=== PATIENT | female | born 1955 | race Caucasian/White ===

== ENCOUNTER → 2018-06-04 | Outpatient (CLI) | payer OTHER ==
--- NOTE | 2018-06-04 17:16 | BD ---
EXAMINATION TYPE: Axial Bone Density DATE OF EXAM: 06/04/2018 COMPARISON: NONE CLINICAL HISTORY: Height: 66 IN Weight: 216 LBS FRAX RISK QUESTIONS: History of Fracture in Adulthood: LT ANKLE FX AGE 53, LT SHOULDER AGE 56 RISK FACTORS HISTORY OF: Family History of Osteoporosis: YES MOTHER Active: YES Diet low in dairy products/other sources of calcium: YES Postmenopausal woman: AGE 50 MEDICATIONS: Additional Medications: MULTI VITAMIN, LOSARTAN, HCTZ, ATENOLOL, CELECOXIB EXAM MEASUREMENTS: Bone mineral densitometry was performed using the [employer] System. Bone mineral density as measured about the Lumbar spine is: ----- L1-L4(G/cm2): 1.220 T Score Values are as follows: ----- L2: 0.1 ----- L3: 0.5 ----- L4: 0.8 ----- L1-L4: 0.3 Bone mineral density BASELINE Bone mineral density about the R hip (g/cm2): 0.950 Bone mineral density about the L hip (g/cm2): 0.875 T Score values are as follows: -----R Neck: -0.6 -----L Neck: -1.2 -----R Total: -0.4 -----L Total: -0.7 Bone mineral density BASELINE IMPRESSION: Normal (Values between +1 and -1 indicate normal bone mass). Consider repeating this study in 5 year s or sooner if there is some new clinical indication. NOTE: T-SCORE=SD OF THE YOUNG ADULT MEAN.
--- NOTE | 2018-06-05 08:13 | MM ---
Reason for exam: screening (asymptomatic). Last mammogram was performed 8 years and 1 month ago. History: Patient is postmenopausal. Benign excisional biopsy of the left breast. Physical Findings: A clinical breast exam by your physician is recommended on an annual basis and results should be correlated with mammographic findings. MG 3D Screening Mammo W/Cad Bilateral CC and MLO view(s) were taken. Prior study comparison: April 26, 2010, bilateral digital screening mammogram. April 19, 2009, bilateral digital screening mammogram. The breast tissue is heterogeneously dense. This may lower the sensitivity of mammography. Stable benign calcifications. There is no discrete abnormality. No significant changes when compared with prior studies. ASSESSMENT: Benign, BI-RAD 2 RECOMMENDATION: Routine screening mammogram of both breasts in 1 year.
== END | disposition home or self-care (01) ==
LOC: RADMAMWWP 08:00
PROVIDERS: ATTEND Family Medicine
DX: Z12.31 Encounter for screening mammogram for malignant neoplasm of breast (principal); Z78.0 Asymptomatic menopausal state
CPT/HCPCS: 77063; 77067; 77080

== ENCOUNTER 2019-03-05 21:13 | Inpatient (IN) | payer OTHER ==
--- NOTE | 2019-03-05 22:09 | ED ---
GI Bleed HPI - General Chief complaint: GI Bleed Stated complaint: Vomiting blood Time Seen by Provider: 03/05/19 21:44 Source: patient Mode of arrival: wheelchair Limitations: no limitations - History of Present Illness Initial comments: 's patient is a 63-year-old woman who presents to be evaluated for suspected gastrointestinal bleeding. The patient states that she noticed some coffee- ground emesis with the vomiting that she has been doing over the past day. Patient states that it is now been about 2 weeks since she has felt like her normal self. She states she had the onset of diarrhea, with about 2-3 soft to watery bowel movements per day going back nearly 2 weeks. She states she has not had any abdominal pain. Over the past day she developed vomiting. She states that since yesterday afternoon she has had 5-6 episodes of vomiting and that there has been some coffee-ground material. With the first episode there may have been a little bit of bright red blood. Patient is denying chest pain or dyspnea. She does feel a little bit lightheaded at times. Patient denies taking antibiotics prior to the onset of the diarrhea. MD complaint: coffee ground emesis Onset/Timin -: days(s) Quality: painless Improves with: none Worsens with: none - Related Data Home Medications Medication Instructions Recorded Confirmed Atenolol [Tenormin] 50 mg PO DAILY 03/05/19 03/05/19 Celecoxib [CeleBREX] 200 mg PO BID 03/05/19 03/05/19 Diphenoxylate HCl/Atropine 2 tab PO QID PRN 03/05/19 03/05/19 [Lomotil 2.5-0.025 mg Tablet] Losartan/Hydrochlorothiazide 1 tab PO DAILY 03/05/19 03/05/19 [Losartan-Hctz 100-25 mg Tab] Multivitamins, Thera [Multivitamin 1 tab PO DAILY 03/05/19 03/05/19 (formulary)] Ranitidine HCl [Zantac] 150 mg PO BID 03/05/19 03/05/19 Allergies Allergy/AdvReac Type Severity Reaction Status Date / Time No Known Allergies Allergy Verified 03/05/19 22:04 Review of Systems ROS Statement: Those systems with pertinent positive or pertinent negative responses have been documented in the HPI. ROS Other: All systems not noted in ROS Statement are negative. Constitutional: Reports: weakness. Denies: fever, chills Respiratory: Denies: cough, dyspnea Cardiovascular: Denies: chest pain, palpitations, orthopnea, edema, syncope Gastrointestinal: Reports: nausea, vomiting, diarrhea, hematemesis. Denies: abdominal pain, melena, hematochezia Genitourinary: Denies: dysuria, hematuria Musculoskeletal: Denies: back pain Skin: Denies: rash Neurological: Denies: headache, weakness, numbness Hematological/Lymphatic: Denies: easy bleeding Past Medical History Past Medical History: Hypertension History of Any Multi-Drug Resistant Organisms: None Reported Past Surgical History: Orthopedic Surgery Additional Past Surgical History / Comment(s): ankle sx Past Psychological History: No Psychological Hx Reported Smoking Status: Never smoker Past Alcohol Use History: None Reported Past Drug Use History: None Reported General Exam Limitations: no limitations General appearance: alert, in no apparent distress Head exam: Present: atraumatic, normocephalic Eye exam: Present: normal appearance. Absent: scleral icterus, conjunctival injection ENT exam: Present: mucous membranes moist, other (Mucosal pallor) Respiratory exam: Present: normal lung sounds bilaterally. Absent: respiratory distress, wheezes, rales, rhonchi, stridor Cardiovascular Exam: Present: regular rate, normal rhythm, normal heart sounds. Absent: systolic murmur, diastolic murmur, rubs, gallop GI/Abdominal exam: Present: soft, normal bowel sounds. Absent: distended, tenderness, guarding, rebound, rigid, mass, pulsatile mass, hernia Extremities exam: Present: normal inspection, normal capillary refill, pedal edema (There is mild left lower extremity edema that the patient states it is chronic since she had broken her leg.). Absent: calf tenderness Back exam: Present: normal inspection. Absent: CVA tenderness (R), CVA tendern ess (L) Neurological exam: Present: alert Skin exam: Present: warm, dry, intact, normal color. Absent: rash Course Vital Signs 03/05/19 03/05/19 03/05/19 21:35 22:12 22:20 Temperature 97.3 F L Pulse Rate 84 68 Respiratory 20 7 L Rate Blood Pressure 101/62 126/71 O2 Sat by Pulse 95 94 L 94 L Oximetry 03/05/19 03/05/19 03/05/19 22:40 23:10 23:40 Temperature Pulse Rate 71 70 72 Respiratory 11 L 9 L 11 L Rate Blood Pressure 133/74 120/73 114/71 O2 Sat by Pulse 94 L 94 L 96 Oximetry 03/06/19 03/06/19 03/06/19 00:10 00:30 00:40 Temperature Pulse Rate 71 70 Respiratory 14 12 Rate Blood Pressure 106/68 106/68 122/69 O2 Sat by Pulse 93 L Oximetry 03/06/19 03/06/19 03/06/19 00:50 01:00 02:50 Temperature Pulse Rate 75 Respiratory 12 Rate Blood Pressure 122/69 122/69 115/75 O2 Sat by Pulse 93 L Oximetry - Reevaluation(s) Reevaluation #1: 03/06/19 05:36 Case is discussed with cardiology given the patient's positive troponins. The p atient is currently not having chest symptoms. Given the GI bleeding, will hold heparin. Cardiology recommendations are incorporated. They will see the patient early. Medical Decision Making - Lab Data Result diagrams: 03/05/19 21:43 03/05/19 21:43 Lab Results 03/05/19 03/05/19 03/05/19 Range/Units 21:43 21:43 21:43 WBC 17.0 H (3.8-10.6) k/uL RBC 3.68 L (3.80-5.40) m/uL Hgb 11.0 L (11.4-16.0) gm/dL Hct 33.6 L (34.0-46.0) % MCV 91.2 (80.0-100.0) fL MCH 29.8 (25.0-35.0) pg MCHC 32.7 (31.0-37.0) g/dL RDW 13.0 (11.5-15.5) % Plt Count 280 (150-450) k/uL Neutrophils % 79 % Lymphocytes % 16 % Monocytes % 3 % Eosinophils % 0 % Basophils % 0 % Neutrophils # 13.5 H (1.3-7.7) k/uL Lymphocytes # 2.7 (1.0-4.8) k/uL Monocytes # 0.6 (0-1.0) k/uL Eosinophils # 0.0 (0-0.7) k/uL Basophils # 0.1 (0-0.2) k/uL PT (9.0-12.0) sec INR (<1.2) APTT (22.0-30.0) sec Sodium 138 (137-145) mmol/L Potassium 4.3 (3.5-5.1) mmol/L Chloride 101 (98-107) mmol/L Carbon Dioxide 25 (22-30) mmol/L Anion Gap 12 mmol/L BUN 49 H (7-17) mg/dL Creatinine 1.36 H (0.52-1.04) mg/dL Est GFR (CKD-EPI)AfAm 48 (>60 ml/min/1.73 sqM) Est GFR (CKD-EPI)NonAf 42 (>60 ml/min/1.73 sqM) Glucose 164 H (74-99) mg/dL Lactic Ac Sepsis Rflx Plasma Lactic Acid Khalif (0.7-2.0) mmol/L Calcium 9.8 (8.4-10.2) mg/dL Total Bilirubin 0.6 (0.2-1.3) mg/dL AST 21 (14-36) U/L ALT 19 (9-52) U/L Alkaline Phosphatase 84 (38-126) U/L Troponin I 0.195 H* (0.000-0.034) ng/mL Total Protein 7.2 (6.3-8.2) g/dL Albumin 4.4 (3.5-5.0) g/dL Amylase 62 (30-110) U/L Lipase 39 (23-300) U/L Stool Occult Blood (Negative) Blood Type Blood Type Confirm Blood Type Recheck Antibody Screen Spec Expiration Date 03/05/19 03/05/19 03/05/19 Range/Units 21:43 22:52 23:24 WBC (3.8-10.6) k/uL RBC (3.80-5.40) m/uL Hgb (11.4-16.0) gm/dL Hct (34.0-46.0) % MCV (80.0-100.0) fL MCH (25.0-35.0) pg MCHC (31.0-37.0) g/dL RDW (11.5-15.5) % Plt Count (150-450) k/uL Neutrophils % % Lymphocytes % % Monocytes % % Eosinophils % % Basophils % % Neutrophils # (1.3-7.7) k/uL Lymphocytes # (1.0-4.8) k/uL Monocytes # (0-1.0) k/uL Eosinophils # (0-0.7) k/uL Basophils # (0-0.2) k/uL PT (9.0-12.0) sec INR (<1.2) APTT (22.0-30.0) sec Sodium (137-145) mmol/L Potassium (3.5-5.1) mmol/L Chloride (98-107) mmol/L Carbon Dioxide (22-30) mmol/L Anion Gap mmol/L BUN (7-17) mg/dL Creatinine (0.52-1.04) mg/dL Est GFR (CKD-EPI)AfAm (>60 ml/min/1.73 sqM) Est GFR (CKD-EPI)NonAf (>60 ml/min/1.73 sqM) Glucose (74-99) mg/dL Lactic Ac Sepsis Rflx Y Plasma Lactic Acid Khalif 2.6 H* (0.7-2.0) mmol/L Calcium (8.4-10.2) mg/dL Total Bilirubin (0.2-1.3) mg/dL AST (14-36) U/L ALT (9-52) U/L Alkaline Phosphatase (38-126) U/L Troponin I (0.000-0.034) ng/mL Total Protein (6.3-8.2) g/dL Albumin (3.5-5.0) g/dL Amylase (30-110) U/L Lipase (23-300) U/L Stool Occult Blood (Negative) Blood Type O Positive Blood Type Confirm Blood Type Recheck CABO Indicated Antibody Screen NEGATIVE Spec Expiration Date 03/08/2019234203/05/19 03/05/19 03/06/19 Range/Units 23:40 23:44 02:12 WBC (3.8-10.6) k/uL RBC (3.80-5.40) m/uL Hgb (11.4-16.0) gm/dL Hct (34.0-46.0) % MCV (80.0-100.0) fL MCH (25.0-35.0) pg MCHC (31.0-37.0) g/dL RDW (11.5-15.5) % Plt Count (150-450) k/uL Neutrophils % % Lymphocytes % % Monocytes % % Eosinophils % % Basophils % % Neutrophils # (1.3-7.7) k/uL Lymphocytes # (1.0-4.8) k/uL Monocytes # (0-1.0) k/uL Eosinophils # (0-0.7) k/uL Basophils # (0-0.2) k/uL PT 11.5 (9.0-12.0) sec INR 1.1 (<1.2) APTT 20.3 L (22.0-30.0) sec Sodium (137-145) mmol/L Potassium (3.5-5.1) mmol/L Chloride (98-107) mmol/L Carbon Dioxide (22-30) mmol/L Anion Gap mmol/L BUN (7-17) mg/dL Creatinine (0.52-1.04) mg/dL Est GFR (CKD-EPI)AfAm (>60 ml/min/1.73 sqM) Est GFR (CKD-EPI)NonAf (>60 ml/min/1.73 sqM) Glucose (74-99) mg/dL Lactic Ac Sepsis Rflx Plasma Lactic Acid Khalif (0.7-2.0) mmol/L Calcium (8.4-10.2) mg/dL Total Bilirubin (0.2-1.3) mg/dL AST (14-36) U/L ALT (9-52) U/L Alkaline Phosphatase (38-126) U/L Troponin I (0.000-0.034) ng/mL Total Protein (6.3-8.2) g/dL Albumin (3.5-5.0) g/dL Amylase (30-110) U/L Lipase (23-300) U/L Stool Occult Blood Positive H (Negative) Blood Type Blood Type Confirm O Positive Blood Type Recheck Antibody Screen Spec Expiration Date - EKG Data -: EKG Interpreted by Me EKG shows normal: sinus rhythm, axis (Normal), intervals (Normal), QRS complexes (Normal) Rate: normal (Rate 73 bpm) Interpretation: nonspecific ST-T wave changes Disposition Clinical Impression: Gastrointestinal hemorrhage, Elevated troponin I level, Lactic acidosis Disposition: ADMITTED IP TO THIS HOSP Condition: Good Is patient prescribed a controlled substance at d/c from ED?: No
[2019-03-05 23:05] LABS: Albumin 4.4 g/dL (3.5-5.0); Calcium 9.8 mg/dL (8.4-10.2); Potassium 4.3 mmol/L (3.5-5.1); Total Bilirubin 0.6 mg/dL (0.2-1.3); Total Protein 7.2 g/dL (6.3-8.2)
[2019-03-05] MEDS ORDERED: SODIUM CHLORIDE 0.9% 1,000 ML IV ONE (23:24)
[2019-03-05 23:46] LABS: Basophils # (A) 0.1 k/uL (0-0.2); Basophils % (A) 0 %; Eosinophils % (A) 0 %; HCT 33.6 % (34.0-46.0); Lymphocytes # (A) 2.7 k/uL (1.0-4.8); Lymphocytes % (A) 16 %; MCH 29.8 pg (25.0-35.0); MCHC 32.7 g/dL (31.0-37.0); MCV 91.2 fL (80.0-100.0); Mean Platelet Volume 7.5; Monocytes # (A) 0.6 k/uL (0-1.0); Monocytes % (A) 3 %; Neutrophils # (A) 13.5 k/uL (1.3-7.7); Neutrophils % (A) 79 %; Platelet Count 280 k/uL (150-450); RBC 3.68 m/uL (3.80-5.40)
[2019-03-06 00:40] LABS: INR 1.1 (<1.2); Prothrombin Time 11.5 sec (9.0-12.0)
[2019-03-06 00:43] LABS: Partial Thromboplastin Time 20.3 sec (22.0-30.0)
[2019-03-06] MEDS ORDERED: ONDANSETRON 4 MG/2 ML VIAL IVP STA (00:53)
[2019-03-06] MEDS ORDERED: SODIUM CHLORIDE 0.9% 1,000 ML IV ONE ×2 (00:56→05:20)
[2019-03-06] MEDS ORDERED: NALOXONE 0.4 MG/ML 1 ML VIAL IV PRN (02:13)
[2019-03-06] MEDS ORDERED: PANTOPRAZOLE 40 MG/10 ML VIAL IVP STA (02:18)
[2019-03-06] MEDS ORDERED: IOPAMIDOL-300 CONTRAST 30 ML VIAL (ORAL USE) PO PRN (02:19)
[2019-03-06] MEDS ORDERED: LEVOFLOXACIN 750 MG TAB PO STA (02:20)
[2019-03-06 03:54] LABS: Appearance,Urine Clear (Clear); Bilirubin,Urine Negative (Negative); Blood,Urine Negative (Negative); Color,Urine Light Yellow; Glucose,Urine (UA) Negative (Negative); Ketones,Urine Negative (Negative); Leukocyte Esterase,Urine Negative (Negative); Nitrite,Urine Negative (Negative); Protein,Urine Negative (Negative); Specific Gravity,Urine 1.023 (1.001-1.035); Urobilinogen,Urine <2.0 mg/dL (<2.0)
[2019-03-06] MEDS: SODIUM CHLORIDE 0.9% 1,000 ML IV SCH ×3 (05:15→22:00)
--- NOTE | 2019-03-06 05:15 | CT ---
EXAM: CT Abdomen and Pelvis With Intravenous Contrast CLINICAL HISTORY: ITS.REASON CT Reason: GI bleeding TECHNIQUE: Axial computed tomography images of the abdomen and pelvis with intravenous contrast. CTDI is 21 mGy and DLP is 1137 mGy-cm. This CT exam was performed using one or more of the following dose reduction techniques: automated exposure control, adjustment of the mA and/or kV according to patient size, and/or use of iterative reconstruction technique. COMPARISON: No relevant prior studies available. FINDINGS: Lung bases: No mass. No consolidation. ABDOMEN: Liver: Unremarkable. Gallbladder and bile ducts: Severely distended gallbladder with a 2 cm stone at the neck. No biliary dilatation. Pancreas: Unremarkable. Spleen: Unremarkable. Adrenals: Unremarkable. Kidneys and ureters: No hydronephrosis. Stomach and bowel: No bowel obstruction. No bowel wall thickening. PELVIS: Appendix: No evidence of appendicitis. Bladder: Unremarkable. Reproductive: Unremarkable. ABDOMEN and PELVIS: Intraperitoneal space: Unremarkable. Bones/joints: No acute fractures. Soft tissues: Unremarkable. Vasculature: No abdominal aortic aneurysm. Lymph nodes: No enlarged lymph nodes. IMPRESSION: 1. Severely distended gallbladder with a 2 cm stone at the neck. If there is pain in the right upper quadrant, recommend ultrasound. 2. No acute bowel pathology.
--- NOTE | 2019-03-06 08:13 | P.HPIM ---
History of Present Illness This is a pleasant 63 years old female with past medical history of high blood pressure. Presents with few weeks of loose bowel movement, about 2-3 times a day, however 2-3 days ago patient started to have an blood in stool associated with vomiting of blood about 4-5 times per day, moderate amount. Patient looks pale and she had some episodes of dizziness and passing out. Patient also has been complaining of from the neck pain and left shoulder pain and she's been taken regular aspirin 325 mg, Exidine twice daily. She has history of left shoulder fracture about 4-5 years ago but no recent trauma. Patient denies chest pain or dyspnea. No coughing. No abdominal pain. Patient is hemodynamically stable with a blood pressure 122/69, and heart rate 70. She has white cell count of 17 K. Hemoglobin is 11. Platelets 218. INR is 1.1. Creatinine 1.36, with unknown baseline. Occult blood is positive in stool. Lactic acid is 2.6, down to 2.2. Troponin 0.19 and 0.28. Urine is not suspicious for infection EKG showing normal sinus rhythm at 73 BPM, no significant ST-T changes. Patient had CT of the abdomen and pelvis severely distended gallbladder with 2 cm stone in the neck In the emergency room patient received IV fluids, Protonix and Levaquin Review of Systems CONSTITUTIONAL: No fever, no malaise, no fatigue. HEENT: No recent visual problems or hearing problems. Denied any sore throat. CARDIOVASCULAR: No orthopnea, PND, no palpitations, no syncope. PULMONARY: No shortness of breath, no cough, no hemoptysis. GASTROINTESTINAL: No diarrhea, no nausea, no vomiting, no abdominal pain. Normoactive bowel sounds. NEUROLOGICAL: No headaches, no weakness, no numbness. HEMATOLOGICAL: Denies any bleeding or petechiae. GENITOURINARY: Denies any burning micturition, frequency, or urgency. MUSCULOSKELETAL/RHEUMATOLOGICAL: Denies any joint pain, swelling, or any muscle pain. ENDOCRINE: Denies any polyuria or polydipsia. Past Medical History Past Medical History: Hypertension History of Any Multi-Drug Resistant Organisms: None Reported Past Surgical History: Orthopedic Surgery Additional Past Surgical History / Comment(s): ankle sx Past Psychological History: No Psychological Hx Reported Smoking Status: Never smoker Past Alcohol Use History: None Reported Past Drug Use History: None Reported Medications and Allergies Home Medications Medication Instructions Recorded Confirmed Type Atenolol [Tenormin] 50 mg PO DAILY 03/05/19 03/05/19 History Celecoxib [CeleBREX] 200 mg PO BID 03/05/19 03/05/19 History Diphenoxylate HCl/Atropine 2 tab PO QID PRN 03/05/19 03/05/19 History [Lomotil 2.5-0.025 mg Tablet] Losartan/Hydrochlorothiazide 1 tab PO DAILY 03/05/19 03/05/19 History [Losartan-Hctz 100-25 mg Tab] Multivitamins, Thera [Multivitamin 1 tab PO DAILY 03/05/19 03/05/19 History (formulary)] Ranitidine HCl [Zantac] 150 mg PO BID 03/05/19 03/05/19 History Allergies Allergy/AdvReac Type Severity Reaction Status Date / Time No Known Allergies Allergy Verified 03/05/19 22:04 Physical Exam Vitals: Vital Signs Temp Pulse Resp BP Pulse Ox 03/06/19 02:50 75 12 115/75 93 L 03/06/19 01:00 122/69 03/06/19 00:50 122/69 03/06/19 00:40 70 12 122/69 93 L 03/06/19 00:30 71 14 106/68 03/06/19 00:10 106/68 03/05/19 23:40 72 11 L 114/71 96 03/05/19 23:10 70 9 L 120/73 94 L 03/05/19 22:40 71 11 L 133/74 94 L 03/05/19 22:20 68 7 L 126/71 94 L 03/05/19 22:12 94 L 03/05/19 21:35 97.3 F L 84 20 101/62 95 Intake and Output 03/05/19 03/05/19 03/06/19 14:59 22:59 06:59 Other: Weight 104.326 kg GENERAL: The patient is alert and oriented x3, not in any acute distress. Well developed, well nourished. HEENT: Pupils are round and equally reacting to light. EOMI. No scleral icterus. No conjunctival pallor. Normocephalic, atraumatic. No pharyngeal erythema. No thyromegaly. CARDIOVASCULAR: S1 and S2 present. No murmurs, rubs, or gallops. PULMONARY: Chest is clear to auscultation, no wheezing or crackles. ABDOMEN: Soft, nontender, nondistended, normoactive bowel sounds. No palpable organomegaly. MUSCULOSKELETAL: No joint swelling or deformity. EXTREMITIES: No cyanosis, clubbing, or pedal edema. NEUROLOGICAL: Gross neurological examination did not reveal any focal deficits. SKIN: No rashes. Results CBC & Chem 7: 03/05/19 21:43 03/05/19 21:43 Labs: Abnormal Lab Results - Last 24 Hours (Table) 03/05/19 03/05/19 03/05/19 Range/Units 21:43 21:43 21:43 WBC 17.0 H (3.8-10.6) k/uL RBC 3.68 L (3.80-5.40) m/uL Hgb 11.0 L (11.4-16.0) gm/dL Hct 33.6 L (34.0-46.0) % Neutrophils # 13.5 H (1.3-7.7) k/uL APTT (22.0-30.0) sec BUN 49 H (7-17) mg/dL Creatinine 1.36 H (0.52-1.04) mg/dL Glucose 164 H (74-99) mg/dL Plasma Lactic Acid Khalif (0.7-2.0) mmol/L Troponin I 0.195 H* (0.000-0.034) ng/mL Stool Occult Blood (Negative) 03/05/19 03/05/19 03/06/19 Range/Units 22:52 23:44 02:12 WBC (3.8-10.6) k/uL RBC (3.80-5.40) m/uL Hgb (11.4-16.0) gm/dL Hct (34.0-46.0) % Neutrophils # (1.3-7.7) k/uL APTT 20.3 L (22.0-30.0) sec BUN (7-17) mg/dL Creatinine (0.52-1.04) mg/dL Glucose (74-99) mg/dL Plasma Lactic Acid Khalif 2.6 H* (0.7-2.0) mmol/L Troponin I (0.000-0.034) ng/mL Stool Occult Blood Positive H (Negative) 03/06/19 03/06/19 Range/Units 02:59 02:59 WBC (3.8-10.6) k/uL RBC (3.80-5.40) m/uL Hgb (11.4-16.0) gm/dL Hct (34.0-46.0) % Neutrophils # (1.3-7.7) k/uL APTT (22.0-30.0) sec BUN (7-17) mg/dL Creatinine (0.52-1.04) mg/dL Glucose (74-99) mg/dL Plasma Lactic Acid Khalif 2.2 H* (0.7-2.0) mmol/L Troponin I 0.282 H* (0.000-0.034) ng/mL Stool Occult Blood (Negative) Assessment and Plan Assessment: Acute GI bleed Acute blood loss anemia Distended gallbladder Acute kidney injury Elevated troponin High lactic acid Essential hypertension Plan: This is a pleasant 63 years old female who presents with GI bleed and elevated troponin. Continue with Protonix. Call GI consult. In view of high troponins we will call cardiology evaluation however no aspirin was started because of the GI bleed. Continue with parenteral hydration and monitor creatinine closely. Follow-up lactic acid level. Also will do regular ultrasound for the gallbladder disease. Check chest x-ray. Continue with antibiotic and send blood culture . Labs and medication were reviewed.. Continue same treatment. Continue with symptomatic treatment. Resume home medication. Monitor lytes and vitals. DVT and GI prophylaxis. Further recommendations of the clinical course of the patient DVT prophylaxis: No heparin in view of GI bleed GI Prophylaxis: Protonix Prognosis is guarded
[2019-03-06 08:52] LABS: Basophils % (A) 0 %; Eosinophils % (A) 0 %; Lymphocytes # (A) 1.7 k/uL (1.0-4.8); Lymphocytes % (A) 18 %; MCH 31.2 pg (25.0-35.0); MCHC 33.9 g/dL (31.0-37.0); Mean Platelet Volume 7.6; Monocytes # (A) 0.5 k/uL (0-1.0); Monocytes % (A) 5 %; Neutrophils # (A) 7.3 k/uL (1.3-7.7); Neutrophils % (A) 75 %; Platelet Count 168 k/uL (150-450); RBC 2.13 m/uL (3.80-5.40); RDW 13.8 % (11.5-15.5); WBC 9.7 k/uL (3.8-10.6)
--- NOTE | 2019-03-06 08:55 | US ---
EXAMINATION TYPE: US liver DATE OF EXAM: 03/06/2019 COMPARISON: CT CLINICAL HISTORY: Distended gallbladder with stones. EXAM MEASUREMENTS: Liver Length: 15.2 cm Gallbladder Wall: 0.2 cm CBD: 0.5 cm Right Kidney: 11.3 x 4.2 x 4.5 cm Pancreas: visualized portions wnl Liver: wnl Gallbladder: large stone measures 2.4 cm, located near neck, does not appear lodged in neck, but did not really move during exam with postition change Evidence for sonographic Keller's sign: No CBD: wnl Right Kidney: No hydronephrosis or masses seen IMPRESSION: 1. Semiimpacted gallstone in the region of the gallbladder neck. No wall thickening or pericholecysti c fluid at this time.
[2019-03-06] MEDS ORDERED: LOSARTAN-HCTZ 50-12.5 MG 1 EACH TAB PO SCH (09:00)
[2019-03-06] MEDS ORDERED: PANTOPRAZOLE 40 MG/10 ML VIAL IVP SCH (09:00)
[2019-03-06 09:03] LABS: HCT 19.6 % (34.0-46.0); HGB 6.6 gm/dL (11.4-16.0)
[2019-03-06] MEDS: ATENOLOL 50 MG TAB PO SCH (09:24)
[2019-03-06] MEDS: MULTIVITAMINS, THERA 1 EACH TAB PO SCH (09:24)
[2019-03-06 09:42] LABS: Albumin 2.5 g/dL (3.5-5.0); Calcium 7.4 mg/dL (8.4-10.2); Potassium 4.3 mmol/L (3.5-5.1); Total Bilirubin 0.2 mg/dL (0.2-1.3); Total Protein 4.6 g/dL (6.3-8.2)
[2019-03-06 14:52] LABS: Glucose,Whole Blood 130 mg/dL (75-99)
[2019-03-06 14:59] LABS: HCT 27.3 % (34.0-46.0); MCH 30.7 pg (25.0-35.0); MCHC 33.4 g/dL (31.0-37.0); MCV 92.1 fL (80.0-100.0); Mean Platelet Volume 7.7; Platelet Count 184 k/uL (150-450); RBC 2.96 m/uL (3.80-5.40); RDW 14.1 % (11.5-15.5); WBC 16.6 k/uL (3.8-10.6)
[2019-03-06 15:02] LABS: HGB 9.1 gm/dL (11.4-16.0)
--- NOTE | 2019-03-06 16:39 | P.CNPUL ---
History of Present Illness Consult date: 03/06/19 Reason for consult: other (GI bleeding, anemia, blood loss, presently in the ICU.) Chief complaint: Black stools and vomiting blood History of present illness: This is a 63-year-old female with known history of hypertension, no previous history of gastric ulcer disease, no previous history of diverticular disease, no previous history of any form of GI bleeding. Patient had a colonoscopy in the last year by Dr. Martinez, and she was told her colonoscopy was normal. Patient normally takes aspirin 325 mg 2-3 times per day for left shoulder pain. Patient presented mostly with few weeks history of loose bowel movements, about 2-3 times per day. However 2 days ago patient has been noticing melanotic stools and at one point she had an episode of coffee-ground emesis. Patient was concerned that she may be losing blood, hence she presented to the ER. She had no abdominal pain, her initial hemoglobin on presentation was 11.0, went down to 6.6, and after a unit of blood was transfused, her hemoglobin came back up to 9.1. Her last episode of melanotic stool was about a few hours ago. Presently the patient is asymptomatic, hemodynamically stable, in no distress, and she was admitted to the ICU because of her GI bleeding. She is yet to be seen by gastroenterology on consultation. Patient is extremely comfortable, and in no distress. She did receive so far 1 unit of packed RBCs. Patient denies being on any anticoagulation therapy except for Excedrin for left shoulder pain, and again she never had any history of GI bleeding, and no history of alcohol abuse. She does not drink any alcohol. Review of Systems CONSTITUTIONAL: No weight loss no fever no chills, no fatigue. HEENT: No diplopia, no blurred vision, no earache, no sore throat. CARDIOVASCULAR: No chest pain, no palpitations, no orthopnea, no PND, no syncope PULMONARY: No shortness of breath, no cough, no hemoptysis. GASTROINTESTINAL: As noted in HPI. NEUROLOGICAL: No headaches no blurred vision no dizziness. HEMATOLOGICAL: No previous history of bleeding clotting or bruising.. GENITOURINARY: No dysuria and no frequency no urgency no hematuria MUSCULOSKELETAL/RHEUMATOLOGICAL: Patient has chronic left shoulder pain otherwise unremarkable.. ENDOCRINE: Denies any symptoms to suggest diabetes or hypothyroidism or hyperthyroidism Past Medical History Past Medical History: Hypertension History of Any Multi-Drug Resistant Organisms: None Reported Past Surgical History: Orthopedic Surgery Additional Past Surgical History / Comment(s): ankle sx Past Psychological History: No Psychological Hx Reported Smoking Status: Never smoker Past Alcohol Use History: None Reported Past Drug Use History: None Reported Medications and Allergies Home Medications Medication Instructions Recorded Confirmed Type Atenolol [Tenormin] 50 mg PO DAILY 03/05/19 03/05/19 History Celecoxib [CeleBREX] 200 mg PO BID 03/05/19 03/05/19 History Diphenoxylate HCl/Atropine 2 tab PO QID PRN 03/05/19 03/05/19 History [Lomotil 2.5-0.025 mg Tablet] Losartan/Hydrochlorothiazide 1 tab PO DAILY 03/05/19 03/05/19 History [Losartan-Hctz 100-25 mg Tab] Multivitamins, Thera [Multivitamin 1 tab PO DAILY 03/05/19 03/05/19 History (formulary)] Ranitidine HCl [Zantac] 150 mg PO BID 03/05/19 03/05/19 History Allergies Allergy/AdvReac Type Severity Reaction Status Date / Time No Known Allergies Allergy Verified 03/05/19 22:04 Physical Exam Vitals: Vital Signs Temp Pulse Pulse Resp BP BP Pulse Ox 03/06/19 16:20 84 19 134/70 03/06/19 16:10 81 16 134/70 03/06/19 16:00 97.7 F 84 16 134/70 03/06/19 15:50 85 20 134/70 03/06/19 15:40 75 12 134/70 03/06/19 15:30 75 14 134/70 03/06/19 15:27 100 03/06/19 15:20 85 21 134/70 03/06/19 15:10 82 22 134/70 03/06/19 15:00 85 22 134/70 03/06/19 14:56 97.7 F 81 16 134/70 03/06/19 14:53 82 18 134/70 03/06/19 14:30 98.1 F 98 28 H 122/53 97 03/06/19 14:20 97 25 H 122/53 03/06/19 14:10 93 14 122/53 98 03/06/19 14:00 98.1 F 89 19 123/73 98 03/06/19 13:50 88 14 123/73 99 03/06/19 13:40 89 21 123/73 99 03/06/19 13:30 78 15 125/90 100 03/06/19 13:25 98.2 F 82 16 123/73 99 03/06/19 13:20 89 14 125/90 100 03/06/19 13:10 93 26 H 125/90 100 03/06/19 13:00 81 13 118/74 100 03/06/19 12:50 87 21 118/74 100 03/06/19 12:40 88 22 118/74 100 03/06/19 12:30 86 15 126/75 100 03/06/19 12:20 81 12 126/75 100 03/06/19 12:10 94 24 126/75 99 03/06/19 12:00 98.3 F 87 25 H 129/67 100 03/06/19 11:50 86 22 129/67 100 03/06/19 11:40 81 20 129/67 100 03/06/19 11:30 82 21 125/63 100 03/06/19 11:20 85 15 114/71 03/06/19 11:10 85 15 114/71 03/06/19 11:00 86 22 114/65 99 03/06/19 10:50 81 19 125/75 99 03/06/19 10:46 98.2 F 84 16 114/65 100 03/06/19 10:40 80 21 125/75 100 03/06/19 10:36 98.2 F 84 18 125/75 97 03/06/19 10:30 76 15 118/65 98 03/06/19 10:20 81 20 118/65 99 03/06/19 10:16 98.4 F 86 16 118/65 03/06/19 10:10 84 37 H 106/82 99 03/06/19 10:06 97.9 F 87 20 106/82 97 03/06/19 10:00 80 11 L 117/98 90 L 03/06/19 09:50 86 19 117/98 91 L 03/06/19 09:40 96/82 95 03/06/19 09:30 122/65 95 03/06/19 09:20 122/65 98 03/06/19 09:10 122/65 98 03/06/19 09:00 81 19 126/90 98 03/06/19 08:50 126/90 100 03/06/19 08:40 80 126/90 97 03/06/19 08:30 94 18 119/64 100 03/06/19 08:20 80 0 L 119/64 100 03/06/19 08:10 81 11 L 119/64 100 03/06/19 08:00 80 10 L 119/64 97 03/06/19 07:50 98.6 F 84 23 119/64 100 03/06/19 07:40 82 23 111/64 03/06/19 07:30 90 11 L 102/71 95 03/06/19 02:50 75 12 115/75 93 L 03/06/19 01:00 122/69 03/06/19 00:50 122/69 03/06/19 00:40 70 12 122/69 93 L 03/06/19 00:30 71 14 106/68 03/06/19 00:10 106/68 03/05/19 23:40 72 11 L 114/71 96 03/05/19 23:10 70 9 L 120/73 94 L 03/05/19 22:40 71 11 L 133/74 94 L 03/05/19 22:20 68 7 L 126/71 94 L 03/05/19 22:12 94 L 03/05/19 21:35 97.3 F L 84 20 101/62 95 Intake and Output 03/06/19 03/06/19 03/06/19 06:59 14:59 22:59 Intake Total 310 200 Balance 310 200 Intake: IV 200 Sodium Chloride 0.9% 1, 200 000 ml @ 100 mls/hr IV . Q10H [facility] Rx#:[id number] Blood Product 310 Rc As-1 Unit 310 [id number] Other: Voiding Method Bedside Commode Physical Exam: Revealed a 63-year-old female in no form of distress, extremely pleasant. Head: Atraumatic, normocephalic. HEENT:[Neck is supple.] [No neck masses.] [No thyromegaly.] [No JVD.] PERRLA, EOMI, no icterus. Mild conjunctival pallor noted. Chest: [Clear throughout, no crackles, no rhonchi, no wheezes.] Cardiac Exam: [Normal S1 and S2, no S3 gallop, no murmur.] Abdomen: [Soft, nontender, no megaly, no rebound, no guarding, normal bowel sounds.] Extremities: [No clubbing, no edema, no cyanosis.] Neurological Exam: [No focal neurologic deficit.] Alert oriented 3. Skin: No rashes Psychiatric: Normal mood affect and mental status examination. Lymphatics: No lymphadenopathy. Results - Laboratory Findings CBC and BMP: 03/06/19 14:47 03/06/19 08:10 PT/INR, D-dimer PT 11.5 sec (9.0-12.0) 03/05/19 23:44 INR 1.1 (<1.2) 03/05/19 23:44 Abnormal lab findings: Abnormal Labs 03/05/19 03/05/19 03/05/19 21:43 21:43 21:43 WBC 17.0 H RBC 3.68 L Hgb 11.0 L Hct 33.6 L Neutrophils # 13.5 H APTT Chloride Carbon Dioxide BUN 49 H Creatinine 1.36 H Glucose 164 H POC Glucose (mg/dL) Plasma Lactic Acid Khalif Calcium Troponin I 0.195 H* Total Protein Albumin Stool Occult Blood Crossmatch 03/05/19 03/05/19 03/05/19 21:43 22:52 23:44 WBC RBC Hgb Hct Neutrophils # APTT 20.3 L Chloride Carbon Dioxide BUN Creatinine Glucose POC Glucose (mg/dL) Plasma Lactic Acid Khalif 2.6 H* Calcium Troponin I Total Protein Albumin Stool Occult Blood Crossmatch See Detail 03/06/19 03/06/19 03/06/19 02:12 02:59 02:59 WBC RBC Hgb Hct Neutrophils # APTT Chloride Carbon Dioxide BUN Creatinine Glucose POC Glucose (mg/dL) Plasma Lactic Acid Khalif 2.2 H* Calcium Troponin I 0.282 H* Total Protein Albumin Stool Occult Blood Positive H Crossmatch 03/06/19 03/06/19 03/06/19 08:10 08:10 08:10 WBC RBC Hgb Hct Neutrophils # APTT Chloride 114 H Carbon Dioxide 21 L BUN 45 H Creatinine 1.09 H Glucose 153 H POC Glucose (mg/dL) Plasma Lactic Acid Khalif 2.6 H* Calcium 7.4 L Troponin I 0.284 H* Total Protein 4.6 L Albumin 2.5 L Stool Occult Blood Crossmatch 03/06/19 03/06/19 03/06/19 08:10 14:47 14:47 WBC 16.6 H RBC 2.13 L 2.96 L Hgb 6.6 L* D 9.1 L D Hct 19.6 L* 27.3 L Neutrophils # APTT Chloride Carbon Dioxide BUN Creatinine Glucose POC Glucose (mg/dL) Plasma Lactic Acid Khalif 4.0 H* Calcium Troponin I Total Protein Albumin Stool Occult Blood Crossmatch 03/06/19 14:50 WBC RBC Hgb Hct Neutrophils # APTT Chloride Carbon Dioxide BUN Creatinine Glucose POC Glucose (mg/dL) 130 H Plasma Lactic Acid Khalif Calcium Troponin I Total Protein Albumin Stool Occult Blood Crossmatch - Diagnostic Findings Additional studies: Ultrasound of the abdomen showed some impacted gallstone in the region of the gallbladder neck. CT of the abdomen and pelvis showed distended gallbladder with a 2 cm stone at the neck, no other pathology was noted. Assessment and Plan Assessment: Impression: 1 acute upper GI bleeding, most likely secondary to erosive gastritis or possibly underlying peptic ulcer disease. 2 acute blood loss anemia 3 distended gallbladder with cholelithiasis 4 benign essential hypertension 5 elevated lactic acid, however no clear-cut evidence of sepsis based on the clinical presentation. 6 elevated troponin, nonspecific, will likely be addressed by cardiology. Recommendation: Agree with the present treatment plan including placement in the ICU, Protonix, blood transfusion for any hemoglobin below 7, patient already received a unit of packed RBCs. GI consultation, cardiac consultation, may even have to consider eventually surgical evaluation for her cholelithiasis. Clinically the patient does not have any abdominal pain or any symptoms to suggest acute cholecystitis. This was basically an incidental finding on the CT of the chest and ultrasound of the liver. We'll continue to monitor and follow in the ICU for the next 24 hours. Time with Patient: Greater than 30
[2019-03-06] MEDS: ONDANSETRON 4 MG/2 ML VIAL IVP PRN (18:14)
--- NOTE | 2019-03-06 20:33 | CONS ---
CONSULTATION Mrs. Caballero is a 63-year-old female who is seen for cardiac evaluation and abnormal troponin. This patient came to the emergency room for evaluation of possible GI bleed. Patient gives a history that she started having coffee-ground emesis with vomiting for the past day, and then she also had onset of diarrhea, 2 to 3 soft watery bowel movements for the last 2 weeks. The patient denied any abdominal pain. The patient denied any fever or chills. Patient has not taken any [id number] medications or any aspirin. There is no previous history of peptic ulcer disease. Patient was found to have significantly low hemoglobin and has received some blood. The patient does not have any cardiac history of angina or prior myocardial infarction. There is no history of diabetes. Patient has a history of hypertension. HOME MEDICATIONS: Home medications included: 1. Tenormin 50 mg daily. 2. Celebrex 200 mg b.i.d. 3. Losartan hydrochlorothiazide once a day. 4. Zantac 150 mg daily. PAST MEDICAL HISTORY: Past medical history includes a history of orthopedic surgery. PHYSICAL EXAMINATION: Physical examination at present reveals a 63-year-old female who appears weak. Blood pressure is 126/71 mmHg, heart rate 68 per minute, respiratory rate 10. Head/ENT examination is negative. Neck is supple. There is no increase in jugular venous pressure. Both the carotid pulses are felt. There is no bruit. Chest is symmetrical. HEART: The PMI is not felt. First and second heart sounds are heard. Lungs are clinically clear to auscultation and percussion. Abdomen is soft. Liver and spleen are not enlarged. Bowel sounds are heard. EXTREMITIES: Peripheral pulsations are 2+. LABS/IMAGING: The patient's initial laboratory tests shows of creatinine 1.3, BUN of 49. Hemoglobin was 11. Repeat hemoglobin is 9.1 grams and creatinine has improved to 1.09. The patient's lactic acid level was 2.6 and 4.0. The troponins are 0.195, 0.282 and 0.284. Patient's electrocardiogram reveals normal sinus rhythm with nonspecific ST-T changes. Ultrasound of the liver shows evidence of enlarged gallbladder and gallstones. FINAL IMPRESSION: 1. This patient has presented with gastrointestinal bleed. It could be possibly secondary to Celebrex. Rule out any underlying significant upper gastritis or peptic ulcer disease. 2. Patient has a history of hypertension. 3. Patient did not complain of any chest pain. EKG does not show any ischemic changes. Mild elevation in the troponin is probably due to supply and demand mismatch and the GI bleeding. Patient did have significant lactic acidosis. We will obtain an echocardiogram to assess the left ventricular systolic functions and we will repeat the EKG. MADONNA / EARLENE: [id number] /
--- NOTE | 2019-03-06 20:58 | P.CONS ---
History of Present Illness - Reason for Consult Consult date: 03/06/19 GI bleed Requesting physician: Dean E Sheet - Chief Complaint Hematemesis, blood per rectum - History of Present Illness Pleasant 63-year-old female with a past medical history significant for hypertension who presents to the hospital due to concerns over an upper GI ble ed. The patient reports that over the past few weeks she has been having 2-3 loose bowel movements daily. She reports that prior to presentation she developed nausea with 4-5 episodes of vomiting which she reports were coffee- ground in appearance. She feels that the first episode there may have been bright red blood and then subsequently she saw the dark coffee-ground material. The patient denies any prior history of upper GI bleed. She is on Zantac which she takes as needed for reflux. She reports that over the past few weeks she has been taking Excedrin regularly. No prior history of EGD with the patient reports that she did have a colonoscopy [address] Martinez. She denies any abdominal pain in association with her symptoms. In association with the increased frequency of bowel movements the patient also felt that she had blood in her stool over the past 2-3 days. On presentation to the hospital hemoglobin was 11.1 with an MCV of 91.2. Hemoglobin subsequently fell to 9.6 and increased to 9.1 after transfusion. Lactic acid was elevated on presentation at 2.2 with subsequent lactic acid found to be 4. INR 1.1, total bilirubin 0.2, alkaline phosphatase 44, AST 12 and ALT 28. The patient had evaluation with a computed tomography scan of the abdomen which showed a severely distended gallbladder with a 2 cm stone in the neck of the gallbladder. Ultrasound was performed which showed a semi-impacted gallstone with no dilation of the common bile duct only for choledocholithiasis noted. Stool testing was positive for blood. The patient was seen in the ICU where she reports that she has had no further vomiting of coffee-ground emesis or bowel movements at this time. Review of Systems REVIEW OF SYSTEMS: CONSTITUTIONAL: Denies any fevers, chills, weight change but does report fatigue. CARDIOVASCULAR: Denies any chest pain, palpitations high or low blood pressures RESPIRATORY: Denies any shortness of breath, hemoptysis or cough. GENITOURINARY: No dysuria or hematuria. MUSCULOSKELETAL: No weakness reported. SKIN: Denies any new rashes or lesions, jaundice but does appear pale. PSYCHIATRIC: Denies any depression or anxiety. NEUROLOGY: Denies headache, denies any new focal deficits. EARS/NOSE/THROAT: No recent hearing change, congestion, nasal discharge or sore throat. EYES: No pain in eyes, discharge or change in vision. GASTROINTESTINAL: As per HPI. Past Medical History Past Medical History: Hypertension History of Any Multi-Drug Resistant Organisms: None Reported Past Surgical History: Orthopedic Surgery Additional Past Surgical History / Comment(s): ankle sx Past Psychological History: No Psychological Hx Reported Smoking Status: Never smoker Past Alcohol Use History: None Reported Past Drug Use History: None Reported Additional History: Past family history: Reviewed with the patient and noncontributory to current medical presentation Medications and Allergies Home Medications Medication Instructions Recorded Confirmed Type Atenolol [Tenormin] 50 mg PO DAILY 03/05/19 03/05/19 History Celecoxib [CeleBREX] 200 mg PO BID 03/05/19 03/05/19 History Diphenoxylate HCl/Atropine 2 tab PO QID PRN 03/05/19 03/05/19 History [Lomotil 2.5-0.025 mg Tablet] Losartan/Hydrochlorothiazide 1 tab PO DAILY 03/05/19 03/05/19 History [Losartan-Hctz 100-25 mg Tab] Multivitamins, Thera [Multivitamin 1 tab PO DAILY 03/05/19 03/05/19 History (formulary)] Ranitidine HCl [Zantac] 150 mg PO BID 03/05/19 03/05/19 History Allergies Allergy/AdvReac Type Severity Reaction Status Date / Time No Known Allergies Allergy Verified 03/05/19 22:04 Physical Exam Vitals: Vital Signs Temp Pulse Pulse Resp BP BP Pulse Ox 03/06/19 14:56 97.7 F 81 16 134/70 03/06/19 14:30 98.1 F 99 16 106/70 97 03/06/19 14:00 98.1 F 98 18 123/53 97 03/06/19 13:25 98.2 F 82 16 123/73 99 03/06/19 13:00 85 18 125/90 99 03/06/19 12:00 98.3 F 86 18 126/75 100 03/06/19 11:30 82 18 129/67 100 03/06/19 11:00 87 18 114/71 99 03/06/19 10:46 98.2 F 84 16 114/65 100 03/06/19 10:36 98.2 F 84 18 125/75 97 03/06/19 10:30 81 17 118/67 97 03/06/19 10:16 98.4 F 86 16 118/65 03/06/19 10:06 97.9 F 87 20 106/82 97 03/06/19 09:00 81 19 122/65 98 03/06/19 08:30 93 18 126/90 98 03/06/19 08:00 80 18 119/64 97 03/06/19 07:50 98.6 F 95 18 116/62 98 03/06/19 02:50 75 12 115/75 93 L 03/06/19 01:00 122/69 03/06/19 00:50 122/69 03/06/19 00:40 70 12 122/69 93 L 03/06/19 00:30 71 14 106/68 03/06/19 00:10 106/68 03/05/19 23:40 72 11 L 114/71 96 03/05/19 23:10 70 9 L 120/73 94 L 03/05/19 22:40 71 11 L 133/74 94 L 03/05/19 22:20 68 7 L 126/71 94 L 03/05/19 22:12 94 L 03/05/19 21:35 97.3 F L 84 20 101/62 95 Intake and Output 03/06/19 03/06/19 03/06/19 06:59 14:59 22:59 Intake Total 310 Balance 310 Intake: Blood Product 310 Rc As-1 Unit 310 [id number] On physical examination, patient appears comfortable in no apparent distress. HEAD: Normocephalic, atraumatic. EYES: No scleral icterus. No conjunctival injection. MOUTH: No lesions, tongue midline. NECK: Trachea midline, no gross abnormalities. CHEST: Clear to auscultation with no wheezing or rhonchi appreciated. HEART: Regular rate and rhythm. ABDOMEN: Soft. Bowel sounds are positive. No organomegaly. No guarding or rigidity. EXTREMITIES: No pedal edema. SKIN: No rashes, no jaundice. NEUROLOGIC: Alert and oriented x3. No focal deficits. Results CBC & Chem 7: 03/06/19 14:47 03/06/19 08:10 Labs: Abnormal Lab Results - Last 24 Hours (Table) 03/05/19 03/05/19 03/05/19 Range/Units 21:43 21:43 21:43 WBC 17.0 H (3.8-10.6) k/uL RBC 3.68 L (3.80-5.40) m/uL Hgb 11.0 L (11.4-16.0) gm/dL Hct 33.6 L (34.0-46.0) % Neutrophils # 13.5 H (1.3-7.7) k/uL APTT (22.0-30.0) sec Chloride (98-107) mmol/L Carbon Dioxide (22-30) mmol/L BUN 49 H (7-17) mg/dL Creatinine 1.36 H (0.52-1.04) mg/dL Glucose 164 H (74-99) mg/dL POC Glucose (mg/dL) (75-99) mg/dL Plasma Lactic Acid Khalif (0.7-2.0) mmol/L Calcium (8.4-10.2) mg/dL Troponin I 0.195 H* (0.000-0.034) ng/mL Total Protein (6.3-8.2) g/dL Albumin (3.5-5.0) g/dL Stool Occult Blood (Negative) Crossmatch 03/05/19 03/05/19 03/05/19 Range/Units 21:43 22:52 23:44 WBC (3.8-10.6) k/uL RBC (3.80-5.40) m/uL Hgb (11.4-16.0) gm/dL Hct (34.0-46.0) % Neutrophils # (1.3-7.7) k/uL APTT 20.3 L (22.0-30.0) sec Chloride (98-107) mmol/L Carbon Dioxide (22-30) mmol/L BUN (7-17) mg/dL Creatinine (0.52-1.04) mg/dL Glucose (74-99) mg/dL POC Glucose (mg/dL) (75-99) mg/dL Plasma Lactic Acid Khalif 2.6 H* (0.7-2.0) mmol/L Calcium (8.4-10.2) mg/dL Troponin I (0.000-0.034) ng/mL Total Protein (6.3-8.2) g/dL Albumin (3.5-5.0) g/dL Stool Occult Blood (Negative) Crossmatch See Detail 03/06/19 03/06/19 03/06/19 Range/Units 02:12 02:59 02:59 WBC (3.8-10.6) k/uL RBC (3.80-5.40) m/uL Hgb (11.4-16.0) gm/dL Hct (34.0-46.0) % Neutrophils # (1.3-7.7) k/uL APTT (22.0-30.0) sec Chloride (98-107) mmol/L Carbon Dioxide (22-30) mmol/L BUN (7-17) mg/dL Creatinine (0.52-1.04) mg/dL Glucose (74-99) mg/dL POC Glucose (mg/dL) (75-99) mg/dL Plasma Lactic Acid Khalif 2.2 H* (0.7-2.0) mmol/L Calcium (8.4-10.2) mg/dL Troponin I 0.282 H* (0.000-0.034) ng/mL Total Protein (6.3-8.2) g/dL Albumin (3.5-5.0) g/dL Stool Occult Blood Positive H (Negative) Crossmatch 03/06/19 03/06/19 03/06/19 Range/Units 08:10 08:10 08:10 WBC (3.8-10.6) k/uL RBC (3.80-5.40) m/uL Hgb (11.4-16.0) gm/dL Hct (34.0-46.0) % Neutrophils # (1.3-7.7) k/uL APTT (22.0-30.0) sec Chloride 114 H (98-107) mmol/L Carbon Dioxide 21 L (22-30) mmol/L BUN 45 H (7-17) mg/dL Creatinine 1.09 H (0.52-1.04) mg/dL Glucose 153 H (74-99) mg/dL POC Glucose (mg/dL) (75-99) mg/dL Plasma Lactic Acid Khalif 2.6 H* (0.7-2.0) mmol/L Calcium 7.4 L (8.4-10.2) mg/dL Troponin I 0.284 H* (0.000-0.034) ng/mL Total Protein 4.6 L (6.3-8.2) g/dL Albumin 2.5 L (3.5-5.0) g/dL Stool Occult Blood (Negative) Crossmatch 03/06/19 03/06/19 03/06/19 Range/Units 08:10 14:47 14:47 WBC 16.6 H (3.8-10.6) k/uL RBC 2.13 L 2.96 L (3.80-5.40) m/uL Hgb 6.6 L* D 9.1 L D (11.4-16.0) gm/dL Hct 19.6 L* 27.3 L (34.0-46.0) % Neutrophils # (1.3-7.7) k/uL APTT (22.0-30.0) sec Chloride (98-107) mmol/L Carbon Dioxide (22-30) mmol/L BUN (7-17) mg/dL Creatinine (0.52-1.04) mg/dL Glucose (74-99) mg/dL POC Glucose (mg/dL) (75-99) mg/dL Plasma Lactic Acid Khalif 4.0 H* (0.7-2.0) mmol/L Calcium (8.4-10.2) mg/dL Troponin I (0.000-0.034) ng/mL Total Protein (6.3-8.2) g/dL Albumin (3.5-5.0) g/dL Stool Occult Blood (Negative) Crossmatch 03/06/19 Range/Units 14:50 WBC (3.8-10.6) k/uL RBC (3.80-5.40) m/uL Hgb (11.4-16.0) gm/dL Hct (34.0-46.0) % Neutrophils # (1.3-7.7) k/uL APTT (22.0-30.0) sec Chloride (98-107) mmol/L Carbon Dioxide (22-30) mmol/L BUN (7-17) mg/dL Creatinine (0.52-1.04) mg/dL Glucose (74-99) mg/dL POC Glucose (mg/dL) 130 H (75-99) mg/dL Plasma Lactic Acid Khalif (0.7-2.0) mmol/L Calcium (8.4-10.2) mg/dL Troponin I (0.000-0.034) ng/mL Total Protein (6.3-8.2) g/dL Albumin (3.5-5.0) g/dL Stool Occult Blood (Negative) Crossmatch CT scan - abdomen: report reviewed US - abdomen: report reviewed (Computed tomography scan of the abdomen with severely distended gallbladder with a 2 cm stone in the neck. Ultrasound of the abdomen significant for a 70 impacted gallstone with no CBD dilation or choledocholithiasis noted.) Assessment and Plan (1) Gastrointestinal hemorrhage Narrative/Plan: 63-year-old female with no prior history of upper GI bleed who presented to the hospital with reports of coffee-ground emesis and was subsequently found to have a fall in her hemoglobin from 11.1 on admission to 6.6. This is in the setting of recent NSAID use with the patient reporting taking Excedrin over the past few weeks. Differential includes peptic ulcer disease, AVM, severe gastritis/esophagitis or other etiology. Current Visit: Yes Status: Acute Code(s): K92.2 - GASTROINTESTINAL HEMORRHAGE, UNSPECIFIED SNOMED Code(s): 33313808 (2) Acute diarrhea Narrative/Plan: Two-week history of diarrhea, likely infectious in nature with stool studies ordered and pending. Current Visit: Yes Status: Acute Code(s): R19.7 - DIARRHEA, UNSPECIFIED SNOMED Code(s): 182421850 (3) Cholelithiasis Narrative/Plan: Patient found to have distended gallbladder with large 2 cm stone in the neck of the gallbladder. No signs of choledocholithiasis or dilated ducts. Liver enzymes within normal limits with total bilirubin 0.2, alkaline phosphatase 44, AST 12 and ALT 28. Current Visit: Yes Status: Acute Code(s): K80.20 - CALCULUS OF GALLBLADDER W/O CHOLECYSTITIS W/O OBSTRUCTION SNOMED Code(s): 928100113 Plan: Supportive care Okay for ice chips and sips of water Continue Protonix 40 mg IV twice a day Continue to monitor hemoglobin and transfuse as needed Avoid NSAID use Nothing by mouth after midnight Plan on EGD in the morning with further recommendations pending findings of endoscopy Continue antibiotic therapy, currently on ceftriaxone Given findings of ultrasound and CT patient would benefit from surgical consult in the setting of cholelithiasis and distended gallbladder Thank you for allowing us to participate in the care of the patient we will continue to follow
[2019-03-06] MEDS: PANTOPRAZOLE 40 MG/10 ML VIAL IVP SCH (21:05)
[2019-03-06 22:20] LABS: Basophils % (A) 0 %; Eosinophils # (A) 0.1 k/uL (0-0.7); Eosinophils % (A) 0 %; Lymphocytes # (A) 2.4 k/uL (1.0-4.8); Lymphocytes % (A) 13 %; MCH 31.2 pg (25.0-35.0); MCHC 33.8 g/dL (31.0-37.0); MCV 92.4 fL (80.0-100.0); Monocytes # (A) 0.7 k/uL (0-1.0); Monocytes % (A) 4 %; Neutrophils # (A) 14.7 k/uL (1.3-7.7); Neutrophils % (A) 81 %; Platelet Count 152 k/uL (150-450); RBC 2.08 m/uL (3.80-5.40); RDW 14.8 % (11.5-15.5); WBC 18.1 k/uL (3.8-10.6)
[2019-03-06 22:27] LABS: HCT 19.2 % (34.0-46.0); HGB 6.5 gm/dL (11.4-16.0)
[2019-03-07 03:17] LABS: Appearance,Urine Clear (Clear); Bilirubin,Urine Negative (Negative); Blood,Urine Negative (Negative); Color,Urine Light Yellow; Glucose,Urine (UA) Negative (Negative); Ketones,Urine Negative (Negative); Leukocyte Esterase,Urine Negative (Negative); Nitrite,Urine Negative (Negative); PH, Urine 5.5 (5.0-8.0); Protein,Urine Negative (Negative); Specific Gravity,Urine 1.027 (1.001-1.035); Urobilinogen,Urine <2.0 mg/dL (<2.0)
[2019-03-07] MEDS ORDERED: LEVOFLOXACIN 500MG-D5W PMX 500 MG in DEXTROSE/WATER 1 100ML.BAG IVPB SCH (05:00)
[2019-03-07 05:57] LABS: Anisocytosis Slight; Basophils # (A) 0.1 k/uL (0-0.2); Basophils % (A) 0 %; Eosinophils # (A) 0.1 k/uL (0-0.7); Eosinophils % (A) 0 %; HCT 28.6 % (34.0-46.0); Lymphocytes # (A) 3.5 k/uL (1.0-4.8); Lymphocytes % (A) 17 %; MCH 31.6 pg (25.0-35.0); MCHC 33.4 g/dL (31.0-37.0); MCV 94.9 fL (80.0-100.0); Mean Platelet Volume 8.4; Monocytes % (A) 5 %; Neutrophils # (A) 15.6 k/uL (1.3-7.7); Neutrophils % (A) 76 %; Platelet Count 112 k/uL (150-450); RBC 3.02 m/uL (3.80-5.40); RDW 16.3 % (11.5-15.5); WBC 20.6 k/uL (3.8-10.6)
[2019-03-07 06:16] LABS: Calcium 8.4 mg/dL (8.4-10.2); Potassium 4.2 mmol/L (3.5-5.1); Total Bilirubin 0.4 mg/dL (0.2-1.3); Total Protein 5.1 g/dL (6.3-8.2)
[2019-03-07 06:17] LABS: HGB 9.5 gm/dL (11.4-16.0)
[2019-03-07] MEDS: MULTIVITAMINS, THERA 1 EACH TAB PO SCH (09:39)
[2019-03-07] MEDS: ATENOLOL 50 MG TAB PO SCH (09:39)
[2019-03-07] MEDS: PANTOPRAZOLE 40 MG/10 ML VIAL IVP SCH ×2 (09:41→20:51)
[2019-03-07] MEDS: SODIUM CHLORIDE 0.9% 1,000 ML IV SCH ×2 (09:42→19:18)
--- NOTE | 2019-03-07 10:52 | P.PN ---
Subjective Progress Note Date: 03/07/19 Principal diagnosis: Acute GI bleeding and anemia secondary to blood loss. This is a 63-year-old female with known history of hypertension, no previous history of gastric ulcer disease, no previous history of diverticular disease, no previous history of any form of GI bleeding. Patient had a colonoscopy in the last year by Dr. Martinez, and she was told her colonoscopy was normal. Patient normally takes aspirin 325 mg 2-3 times per day for left shoulder pain. Patient presented mostly with few weeks history of loose bowel movements, about 2-3 times per day. However 2 days ago patient has been noticing melanotic stools and at one point she had an episode of coffee-ground emesis. Patient was concerned that she may be losing blood, hence she presented to the ER. She had no abdominal pain, her initial hemoglobin on presentation was 11.0, went down to 6.6, and after a unit of blood was transfused, her hemoglobin came back up to 9.1. Her last episode of melanotic stool was about a few hours ago. Presently the patient is asymptomatic, hemodynamically stable, in no distress, and she was admitted to the ICU because of her GI bleeding. She is yet to be seen by gastro enterology on consultation. Patient is extremely comfortable, and in no distress. She did receive so far 1 unit of packed RBCs. Patient denies being on any anticoagulation therapy except for Excedrin for left shoulder pain, and again she never had any history of GI bleeding, and no history of alcohol abuse. She does not drink any alcohol. Reevaluated today on 03/07/2019, continues to have intermittent episodes of melanotic stools, and coffee-ground emesis. Her last episode of melanotic stool s was about 1 hour ago. Patient is scheduled to undergo EGD by gastroenterology today. Hemoglobin dropped last night to 6.5 again, patient received so far a total of 3 units of packed RBCs. Remains hemodynamically stable, scheduled to undergo EGD today. Denies any chest pain, denies any abdominal pain, denies any headache blurred vision or dizziness. Objective - Vital Signs Vital signs: Vital Signs Temp 97.8 F 03/07/19 08:00 Pulse 107 H 03/07/19 10:30 Resp 12 03/07/19 10:30 BP 128/89 03/07/19 10:00 Pulse Ox 94 L 03/07/19 10:30 Intake & Output 03/06/19 03/07/19 03/07/19 18:59 06:59 18:59 Intake Total 830 1920 400 Output Total 350 870 185 Balance 480 1050 215 Weight 102.2 kg Intake: IV 500 1300 400 Sodium Chloride 0.9% 1, 500 1300 400 000 ml @ 100 mls/hr IV . Q10H [facility] Rx#:[id number] Oral 20 Blood Product 310 620 Rc As-1 Unit 310 [id number] Rc As-1 Unit 310 [id number] Rc As-1 Unit 310 [id number] Output: Urine 350 520 185 Stool 350 Other: Voiding Method Bedside Commode Indwelling Catheter Indwelling Catheter # Voids 2 # Bowel Movements 1 - Exam Physical Exam: Revealed a 63-year-old female, pleasant not in distress. Head: Atraumatic, normocephalic. HEENT:[Neck is supple.] [No neck masses.] [No thyromegaly.] [No JVD.] PERRLA, EOMI, no icterus. Mild conjunctival pallor noted. Chest: [Clear throughout, no crackles, no rhonchi, no wheezes.] Cardiac Exam: [Normal S1 and S2, no S3 gallop, no murmur.] Abdomen: [Soft, nontender, no megaly, no rebound, no guarding, normal bowel sounds.] Extremities: [No clubbing, no edema, no cyanosis.] Neurological Exam: [No focal neurologic deficit.] Alert oriented 3. Skin: No rashes Psychiatric: Normal mood affect and mental status examination. Lymphatics: No lymphadenopathy. - Labs CBC & Chem 7: 03/07/19 05:22 03/07/19 05:22 Labs: Abnormal Lab Results - Last 24 Hours (Table) 03/05/19 03/06/19 03/06/19 Range/Units 21:43 14:47 14:47 WBC 16.6 H (3.8-10.6) k/uL RBC 2.96 L (3.80-5.40) m/uL Hgb 9.1 L D (11.4-16.0) gm/dL Hct 27.3 L (34.0-46.0) % RDW (11.5-15.5) % Plt Count (150-450) k/uL Neutrophils # (1.3-7.7) k/uL Chloride (98-107) mmol/L Carbon Dioxide (22-30) mmol/L BUN (7-17) mg/dL Creatinine (0.52-1.04) mg/dL Glucose (74-99) mg/dL POC Glucose (mg/dL) (75-99) mg/dL Plasma Lactic Acid Khalif 4.0 H* (0.7-2.0) mmol/L Total Protein (6.3-8.2) g/dL Albumin (3.5-5.0) g/dL Crossmatch See Detail 03/06/19 03/06/19 03/07/19 Range/Units 14:50 21:56 05:22 WBC 18.1 H (3.8-10.6) k/uL RBC 2.08 L (3.80-5.40) m/uL Hgb 6.5 L* D (11.4-16.0) gm/dL Hct 19.2 L* (34.0-46.0) % RDW (11.5-15.5) % Plt Count (150-450) k/uL Neutrophils # 14.7 H (1.3-7.7) k/uL Chloride 117 H (98-107) mmol/L Carbon Dioxide 20 L (22-30) mmol/L BUN 43 H (7-17) mg/dL Creatinine 1.13 H (0.52-1.04) mg/dL Glucose 151 H (74-99) mg/dL POC Glucose (mg/dL) 130 H (75-99) mg/dL Plasma Lactic Acid Khalif (0.7-2.0) mmol/L Total Protein 5.1 L (6.3-8.2) g/dL Albumin 3.0 L (3.5-5.0) g/dL Crossmatch 03/07/19 Range/Units 05:22 WBC 20.6 H (3.8-10.6) k/uL RBC 3.02 L (3.80-5.40) m/uL Hgb 9.5 L D (11.4-16.0) gm/dL Hct 28.6 L (34.0-46.0) % RDW 16.3 H (11.5-15.5) % Plt Count 112 L (150-450) k/uL Neutrophils # 15.6 H (1.3-7.7) k/uL Chloride (98-107) mmol/L Carbon Dioxide (22-30) mmol/L BUN (7-17) mg/dL Creatinine (0.52-1.04) mg/dL Glucose (74-99) mg/dL POC Glucose (mg/dL) (75-99) mg/dL Plasma Lactic Acid Khalif (0.7-2.0) mmol/L Total Protein (6.3-8.2) g/dL Albumin (3.5-5.0) g/dL Crossmatch Assessment and Plan Assessment: Impression: 1 acute upper GI bleeding, most likely secondary to erosive gastritis or possibly underlying peptic ulcer disease. 2 acute blood loss anemia 3 distended gallbladder with cholelithiasis. No evidence of cholecystitis. 4 benign essential hypertension 5 elevated lactic acid, however no clear-cut evidence of sepsis based on the clinical presentation. 6 elevated troponin, likely troponin leak. Being addressed by cardiology. Recommendation: Continue Protonix, continue to monitor serial hemoglobin and hematocrit, transfuse for hemoglobin below 7, agree with EGD to be done today, cardiology is yet to be evaluated the patient, continue to monitor in the ICU as long as the patient is having active bleeding. Based on the EGD findings today, further recommendations will follow. Time with Patient: Less than 30
--- NOTE | 2019-03-07 11:44 | ECHOF ---
Referral Reason:elevated trop MEASUREMENTS -------- HEIGHT: 170.2 cm WEIGHT: 104.3 kg BP: 134/70 RVIDd: 3.1 cm (< 3.3) IVSd: 1.1 cm (0.6 - 1.1) LVIDd: 4.3 cm (3.9 - 5.3) LVPWd: 1.1 cm (0.6 - 1.1) IVSs: 1.4 cm LVIDs: 2.7 cm LVPWs: 1.4 cm LA Diam: 2.7 cm (2.7 - 3.8) LAESV Index (A-L): 20.45 ml/m Ao Diam: 3.4 cm (2.0 - 3.7) AV Cusp: 2.3 cm (1.5 - 2.6) EPSS: 0.5 cm MV E Bry: 0.75 m/s MV DecT: 211 ms MV A Bry: 0.85 m/s MV E/A Ratio: 0.88 AV maxP.70 mmHg AV maxP.70 mmHg AV meanP.87 mmHg AR PHT: 721 ms MV EF SLOPE: 20.33 mm/s (70 - 150) MV EXCURSION: 0.98 cm (> 18.000) FINDINGS -------- Sinus rhythm. This was a technically adequate study. The left ventricular size is normal. There is borderline concentric left ventricular hypertrophy. Overall left ventricular systolic function is normal with, an EF between 60 - 65 %. The right ventricle is normal in size. Left atrium is normal size by volume. The right atrium is normal in size and function. Interatrial and interventricular septum intact. There is mild aortic valve sclerosis without stenosis. There is [id number] aortic regurgitati on. Peak/mean gradient across the valve is 21.70mmHg / 8.87mmHg. The mitral valve leaflets are mildly thickened. The tricuspid valve appears structurally normal. The pulmonic valve was not well visualized. The aortic root size is normal. Normal inferior vena cava with normal inspiratory collapse consistent with estimated right atrial pre ssure of 5 mmHg. There is no pericardial effusion. CONCLUSIONS -------- 1. Sinus rhythm. 2. This was a technically adequate study. 3. The left ventricular size is normal. 4. There is borderline concentric left ventricular hypertrophy. 5. Overall left ventricular systolic function is normal with, an EF between 60 - 65 %. 6. The right ventricle is normal in size. 7. Left atrium is normal size by volume. 8. The right atrium is normal in size and function. 9. Interatrial and interventricular septum intact. 10. There is mild aortic valve sclerosis without stenosis. 11. There is [id number]-[id number] aortic regurgitation. 12. Peak/mean gradient across the valve is 21.70mmHg / 8.87mmHg. 13. The mitral valve leaflets are mildly thickened. 14. The tricuspid valve appears structurally normal. 15. The pulmonic valve was not well visualized. 16. The aortic root size is normal. 17. Normal inferior vena cava with normal inspiratory collapse consistent with estimated right atrial pressure of 5 mmHg. 18. There is no pericardial effusion. [employer]: JOHNATHON Mcgrath
[2019-03-07 13:02] LABS: Anisocytosis Slight; HCT 25.9 % (34.0-46.0); HGB 8.7 gm/dL (11.4-16.0); MCH 32.3 pg (25.0-35.0); MCHC 33.5 g/dL (31.0-37.0); MCV 96.4 fL (80.0-100.0); Mean Platelet Volume 8.6; RBC 2.69 m/uL (3.80-5.40); RDW 16.4 % (11.5-15.5); WBC 23.6 k/uL (3.8-10.6)
--- NOTE | 2019-03-07 14:05 | P.PN ---
Subjective Progress Note Date: 03/07/19 Principal diagnosis: Acute GI bleed Acute blood loss anemia 63-year-old female with known history of hypertension, no previous history of gastric ulcer disease, no previous history of diverticular disease, no previous history of any form of GI bleeding. Patient had a colonoscopy in the last year by Dr. Martinez, and she was told her colonoscopy was normal. Patient normally takes aspirin 325 mg 2-3 times per day for left shoulder pain. Patient presented mostly with few weeks history of loose bowel movements, about 2-3 times per day. However 2 days ago patient has been noticing melanotic stools and at one point she had an episode of coffee-ground emesis. Patient was conc erned that she may be losing blood, hence she presented to the ER. She had no abdominal pain, her initial hemoglobin on presentation was 11.0, went down to 6.6, and after a unit of blood was transfused, her hemoglobin came back up to 9.1. Her last episode of melanotic stool was about a few hours ago. Presently the patient is asymptomatic, hemodynamically stable, in no distress, and she was admitted to the ICU because of her GI bleeding. She is yet to be seen by gastroenterology on consultation. Patient is extremely comfortable, and in no distress. She did receive so far 1 unit of packed RBCs. Patient denies being on any anticoagulation therapy except for Excedrin for left shoulder pain, and again she never had any history of GI bleeding, and no history of alcohol abuse. She does not drink any alcohol. Reevaluated today on 03/07/2019, continues to have intermittent episodes of sixto notic stools, and coffee-ground emesis. Her last episode of melanotic stools was about 1 hour ago. Patient is scheduled to undergo EGD by gastroenterology today. Hemoglobin dropped last night to 6.5 again, patient received so far a total of 3 units of packed RBCs. Remains hemodynamically stable, scheduled to undergo EGD today. Denies any chest pain, denies any abdominal pain, denies any headache blurred vision or dizziness Objective - Vital Signs Vital signs: Vital Signs Temp 97.8 F 03/07/19 08:00 Pulse 113 H 03/07/19 11:00 Resp 17 03/07/19 11:00 BP 138/61 03/07/19 11:00 Pulse Ox 94 L 03/07/19 11:00 Intake & Output 03/06/19 03/07/19 03/07/19 18:59 06:59 18:59 Intake Total 830 1920 500 Output Total 350 870 310 Balance 480 1050 190 Weight 102.2 kg Intake: IV 500 1300 500 Sodium Chloride 0.9% 1, 500 1300 500 000 ml @ 100 mls/hr IV . Q10H [facility], [facility]–1983 Rx#:[id number] Oral 20 Blood Product 310 620 Rc As-1 Unit 310 [id number] Rc As-1 Unit 310 [id number] Rc As-1 Unit 310 [id number] Output: Urine 350 520 310 Stool 350 Other: Voiding Method Bedside Commode Indwelling Catheter Indwelling Catheter # Voids 2 # Bowel Movements 1 1 - Exam Physical Exam: Revealed a 63-year-old female, pleasant not in distress. Head: Atraumatic, normocephalic. HEENT:[Neck is supple.] [No neck masses.] [No thyromegaly.] [No JVD.] PERRLA, E FER, no icterus. Mild conjunctival pallor noted. Chest: [Clear throughout, no crackles, no rhonchi, no wheezes.] Cardiac Exam: [Normal S1 and S2, no S3 gallop, no murmur.] Abdomen: [Soft, nontender, no megaly, no rebound, no guarding, normal bowel sounds.] Extremities: [No clubbing, no edema, no cyanosis.] Neurological Exam: [No focal neurologic deficit.] Alert oriented 3. Skin: No rashes Psychiatric: Normal mood affect and mental status examination. Lymphatics: No lymphadenopathy. - Labs CBC & Chem 7: 03/07/19 11:07 03/07/19 05:22 Labs: Abnormal Lab Results - Last 24 Hours (Table) 03/05/19 03/06/19 03/06/19 Range/Units 21:43 14:47 14:47 WBC 16.6 H (3.8-10.6) k/uL RBC 2.96 L (3.80-5.40) m/uL Hgb 9.1 L D (11.4-16.0) gm/dL Hct 27.3 L (34.0-46.0) % RDW (11.5-15.5) % Plt Count (150-450) k/uL Neutrophils # (1.3-7.7) k/uL Chloride (98-107) mmol/L Carbon Dioxide (22-30) mmol/L BUN (7-17) mg/dL Creatinine (0.52-1.04) mg/dL Glucose (74-99) mg/dL POC Glucose (mg/dL) (75-99) mg/dL Plasma Lactic Acid Khalif 4.0 H* (0.7-2.0) mmol/L Total Protein (6.3-8.2) g/dL Albumin (3.5-5.0) g/dL Crossmatch See Detail 03/06/19 03/06/19 03/07/19 Range/Units 14:50 21:56 05:22 WBC 18.1 H (3.8-10.6) k/uL RBC 2.08 L (3.80-5.40) m/uL Hgb 6.5 L* D (11.4-16.0) gm/dL Hct 19.2 L* (34.0-46.0) % RDW (11.5-15.5) % Plt Count (150-450) k/uL Neutrophils # 14.7 H (1.3-7.7) k/uL Chloride 117 H (98-107) mmol/L Carbon Dioxide 20 L (22-30) mmol/L BUN 43 H (7-17) mg/dL Creatinine 1.13 H (0.52-1.04) mg/dL Glucose 151 H (74-99) mg/dL POC Glucose (mg/dL) 130 H (75-99) mg/dL Plasma Lactic Acid Khalif (0.7-2.0) mmol/L Total Protein 5.1 L (6.3-8.2) g/dL Albumin 3.0 L (3.5-5.0) g/dL Crossmatch 03/07/19 Range/Units 05:22 WBC 20.6 H (3.8-10.6) k/uL RBC 3.02 L (3.80-5.40) m/uL Hgb 9.5 L D (11.4-16.0) gm/dL Hct 28.6 L (34.0-46.0) % RDW 16.3 H (11.5-15.5) % Plt Count 112 L (150-450) k/uL Neutrophils # 15.6 H (1.3-7.7) k/uL Chloride (98-107) mmol/L Carbon Dioxide (22-30) mmol/L BUN (7-17) mg/dL Creatinine (0.52-1.04) mg/dL Glucose (74-99) mg/dL POC Glucose (mg/dL) (75-99) mg/dL Plasma Lactic Acid Khalif (0.7-2.0) mmol/L Total Protein (6.3-8.2) g/dL Albumin (3.5-5.0) g/dL Crossmatch Assessment and Plan Assessment: 1 acute upper GI bleeding, most likely secondary to erosive gastritis or possibly underlying peptic ulcer disease. 2 acute blood loss anemia 3 distended gallbladder with cholelithiasis. No evidence of cholecystitis. 4 benign essential hypertension 5 elevated lactic acid, however no clear-cut evidence of sepsis based on the clinical presentation. 6 elevated troponin, likely troponin leak. Being addressed by cardiology. Recommendation: Continue Protonix, continue to monitor serial hemoglobin and hematocrit, transfuse for hemoglobin below 7, agree with EGD to be done today, cardiology has yet to evaluate the patient, continue to monitor in the ICU as long as the patient is having active bleeding. Based on the EGD findings today, further recommendations will follow. Time with Patient: Greater than 30
[2019-03-07 14:23] LABS: Monocytes # (M) 0.94 k/uL (0-1.0); Neutrophils # (M) 19.35 k/uL (1.3-7.7); Neutrophils % (M) 82 %; Nucleated Red Blood Cells 0 /100 WBC (0-0); Total Cells Counted 100
[2019-03-07 14:26] LABS: Platelet Count 86 k/uL (150-450)
[2019-03-07] MEDS ORDERED: IV FLUID CONTINUATION 300 ML IV ONE (15:18)
[2019-03-07] MEDS ORDERED: PROPOFOL 10 MG/ML 20 ML VIAL IV ONE (15:22)
--- NOTE | 2019-03-07 15:44 | P.PCN ---
Date of Procedure: 03/07/19 Procedure(s) Performed: BRIEF HISTORY: Patient is a 63-year-old, pleasant, white female, admitted to the intensive care unit with acute upper GI bleed. She had an episode of coffee from this emesis followed by multiple episodes of maroon colored stools. She dropped hemoglobin from 11-6 g/dL and white female is a transition area and he will be given today is 8.7 g/dL. She has been taking Excedrin with aspirin for the last few days. Because of the clinical suspicion for upper GI source of bleeding she is scheduled for an upper endoscopy. PROCEDURE PERFORMED: Esophagogastroduodenoscopy With cautery using a gold probe and biopsy PREOPERATIVE DIAGNOSIS: acute GI bleed IV sedation per anesthesia. PROCEDURE: After informed consent was obtained, the patient was brought into the endoscopy unit. IV sedation was administered by Anesthesia under continuous monitoring. Initially the Olympus GIF-140 video endoscope was inserted into the mouth. Esophagus intubated without any difficulty. It was gradually advanced into the stomach and duodenum and carefully examined. The bulb and the second part of the duodenum had normal-appearing mucosa. There was no active bleeding noted. In the duodenal bulb there were 2 small submission ulcerations identified one of them had a small pigmented spot but no active bleeding. Since no other obvious source of bleeding was identifie There was no active bleeding identified. The scope at this time was withdrawn to the stomach, adequately insufflated with air, and upon careful examination, mucosa of the antrum, had scattered erosions and biopsies which pylori were done. The body, cardia and the fundus appeared normal. The scope was then withdrawn into the esophagus. The GE junction was located at 39 cm from the incisors. small hiatal hernia noted. The esophagus appeared normal. There were no erosions or ulcerations seen and the patient tolerated the procedure well. IMPRESSION: 1. 2 small superficial duodenal bulbar ulcers with no active bleeding but there was a small pigmented spot which may be the source of recent bleed status post cautery using a gold probe 2.[ Antral erosive gastritis and small hiatal hernia RECOMMENDATIONS: The findings of this examination were discussed with the patient as well as her family. At this time she'll be continued on Protonix 40 mg every 12 hours and monitor hemoglobin every 6 hours. If she continues to have further bleeding will consider a colonoscopy. She will remain on a clear liquid diet today.
[2019-03-07] MEDS: ONDANSETRON 4 MG/2 ML VIAL IVP PRN (16:38)
[2019-03-07 17:05] LABS: Anisocytosis Slight; Basophils # (A) 0.1 k/uL (0-0.2); Basophils % (A) 1 %; Eosinophils # (A) 0.1 k/uL (0-0.7); Eosinophils % (A) 1 %; HCT 23.9 % (34.0-46.0); HGB 8.2 gm/dL (11.4-16.0); Lymphocytes # (A) 3.7 k/uL (1.0-4.8); Lymphocytes % (A) 14 %; MCH 31.9 pg (25.0-35.0); MCHC 34.4 g/dL (31.0-37.0); MCV 92.5 fL (80.0-100.0); Mean Platelet Volume 8.7; Monocytes # (A) 2.2 k/uL (0-1.0); Monocytes % (A) 8 %; Neutrophils # (A) 19.4 k/uL (1.3-7.7); Neutrophils % (A) 75 %; RBC 2.58 m/uL (3.80-5.40); RDW 17.3 % (11.5-15.5)
[2019-03-07 17:24] LABS: Anisocytosis (M) Present; Hypochromasia (M) Present; Platelet Count 99 k/uL (150-450)
--- NOTE | 2019-03-07 18:56 | NM ---
EXAMINATION TYPE: NM GI bleeding DATE OF EXAM: 03/07/2019 HISTORY: Nausea and vomiting, possible GI bleed. COMPARISON: CT abdomen and pelvis from yesterday. Following administration of 3 ml PYP 24.3 mCi Tc 99m Sodium Pertechnate. Dynamic images post injectio n. FINDINGS: Normal tracer activity is seen in the blood pool of the abdominal aorta, common iliac arteries, femor al arteries, liver, and spleen on all of the interval images. Later images show accumulation of trace r in the urinary bladder, which is consistent with excreted tracer. No abnormal tracer uptake is pres ent outside the blood pool that would be consistent with an active GI bleed that shows suspicious inc reased uptake with peristalsis. IMPRESSION: Negative examination. No evidence of active gastrointestinal bleeding during the initial 1 hr observa tion period.
[2019-03-07 19:43] LABS: Anisocytosis Slight; Basophils # (A) 0.1 k/uL (0-0.2); Basophils % (A) 0 %; Eosinophils # (A) 0.1 k/uL (0-0.7); Eosinophils % (A) 0 %; HCT 22.8 % (34.0-46.0); HGB 7.8 gm/dL (11.4-16.0); Lymphocytes # (A) 3.6 k/uL (1.0-4.8); Lymphocytes % (A) 15 %; MCH 32.2 pg (25.0-35.0); MCHC 34.4 g/dL (31.0-37.0); MCV 93.7 fL (80.0-100.0); Mean Platelet Volume 8.7; Monocytes # (A) 1.6 k/uL (0-1.0); Monocytes % (A) 7 %; Neutrophils # (A) 18.1 k/uL (1.3-7.7); Neutrophils % (A) 76 %; RBC 2.43 m/uL (3.80-5.40); WBC 23.8 k/uL (3.8-10.6)
[2019-03-07 20:03] LABS: Anisocytosis (M) Present; Hypochromasia (M) Present; Polychromasia Present
[2019-03-07 20:04] LABS: Platelet Count 85 k/uL (150-450)
[2019-03-07 20:30] LABS: Ammonia <9 umol/L (<30); Lactic Acid, Venous 1.6 mmol/L (0.7-2.0)
[2019-03-07 20:31] LABS: Calcium 8.6 mg/dL (8.4-10.2); Potassium 3.6 mmol/L (3.5-5.1); Total Bilirubin 0.5 mg/dL (0.2-1.3); Total Protein 5.1 g/dL (6.3-8.2)
[2019-03-07] MEDS: metroNIDAZOLE-NS PMX 500 MG in SALINE 1 100ML.BAG IVPB SCH (20:46)
[2019-03-07] MEDS ORDERED: LORazepam 2 MG/ML INJ IV ONE ×2 (22:16→23:36)
[2019-03-07] MEDS ORDERED: SODIUM CHLORIDE 0.9% 1,000 ML IV ONE (23:36)
--- NOTE | 2019-03-08 00:34 | CT ---
EXAM: CT Head Without Intravenous Contrast CLINICAL HISTORY: ITS.REASON CT Reason: Confusion TECHNIQUE: Axial computed tomography images of the head/brain without intravenous contrast. CTDI is 49 mGy and DLP is 1071 mGy-cm. This CT exam was performed using one or more of the following dose reduction techniques: automated exposure control, adjustment of the mA and/or kV according to patient size, and/or use of iterative reconstruction technique. COMPARISON: CT head 12/09/09 FINDINGS: Brain: No hemorrhage. Encephalomalacia in the bilateral cerebellum. Hypodensity in the right frontal lobe. Ventricles: No hydrocephalus. Bones/joints: Unremarkable. Soft tissues: Unremarkable. Sinuses: Unremarkable. Mastoid air cells: Clear. IMPRESSION: No acute hemorrhage, hydrocephalus, or mass effect. Age indeterminate infarct in the right frontal lobe. 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
[2019-03-08 00:46] LABS: Anisocytosis Slight; Basophils % (A) 0 %; Eosinophils % (A) 0 %; Lymphocytes # (A) 3.3 k/uL (1.0-4.8); Lymphocytes % (A) 16 %; MCH 32.9 pg (25.0-35.0); MCHC 35.1 g/dL (31.0-37.0); MCV 93.8 fL (80.0-100.0); Mean Platelet Volume 8.3; Monocytes # (A) 1.4 k/uL (0-1.0); Monocytes % (A) 7 %; Neutrophils # (A) 15.6 k/uL (1.3-7.7); Neutrophils % (A) 75 %; RBC 2.11 m/uL (3.80-5.40); RDW 17.2 % (11.5-15.5); WBC 20.8 k/uL (3.8-10.6)
[2019-03-08 00:50] LABS: HCT 19.8 % (34.0-46.0); HGB 6.9 gm/dL (11.4-16.0); Platelet Count 78 k/uL (150-450)
[2019-03-08] MEDS ORDERED: Potassium Replacement Protocol 1 EACH MISC MISCELLANE PRN ×2 (01:47→21:24)
[2019-03-08] MEDS ORDERED: POTASSIUM CHLORIDE ER 20 MEQ TAB.ER PO SCH (02:00)
[2019-03-08] MEDS: POTASSIUM CHLORIDE 10 MEQ in WATER FOR INJECTION 1 100ML.BAG IVPB SCH ×4 (02:45→13:14)
[2019-03-08] MEDS: SODIUM CHLORIDE 0.9% 1,000 ML IV SCH ×2 (03:56→14:26)
[2019-03-08] MEDS: ONDANSETRON 4 MG/2 ML VIAL IVP PRN ×2 (03:59→19:02)
[2019-03-08] MEDS: metroNIDAZOLE-NS PMX 500 MG in SALINE 1 100ML.BAG IVPB SCH ×2 (04:59→11:35)
--- NOTE | 2019-03-08 06:21 | XR ---
EXAMINATION TYPE: XR chest 1V portable DATE OF EXAM: 03/08/2019 HISTORY: SOB . REFERENCE: NONE. FINDINGS: Heart size upper limits of normal. There is bibasilar airspace disease. No definite pleural fluid is seen. IMPRESSION: 1. BORDERLINE CARDIOMEGALY. 2. BIBASILAR AIRSPACE DISEASE.
[2019-03-08] MEDS ORDERED: DEXTROSE 5% IN WATER 1,000 ML IV ONE ×2 (07:53→18:09)
[2019-03-08] MEDS: ATENOLOL 50 MG TAB PO SCH (08:34)
[2019-03-08] MEDS: PANTOPRAZOLE 40 MG/10 ML VIAL IVP SCH ×2 (08:35→21:38)
[2019-03-08] MEDS: MULTIVITAMINS, THERA 1 EACH TAB PO SCH (08:35)
--- NOTE | 2019-03-08 09:44 | P.PN ---
Subjective Progress Note Date: 03/08/19 Principal diagnosis: Acute GI bleeding and anemia secondary to blood loss. This is a 63-year-old female with known history of hypertension, no previous history of gastric ulcer disease, no previous history of diverticular disease, no previous history of any form of GI bleeding. Patient had a colonoscopy in the last year by Dr. Martinez, and she was told her colonoscopy was normal. Patient normally takes aspirin 325 mg 2-3 times per day for left shoulder pain. Patient presented mostly with few weeks history of loose bowel movements, about 2-3 times per day. However 2 days ago patient has been noticing melanotic stools and at one point she had an episode of coffee-ground emesis. Patient was concerned that she may be losing blood, hence she presented to the ER. She had no abdominal pain, her initial hemoglobin on presentation was 11.0, went down to 6.6, and after a unit of blood was transfused, her hemoglobin came back up to 9.1. Her last episode of melanotic stool was about a few hours ago. Presently the patient is asymptomatic, hemodynamically stable, in no distress, and she was admitted to the ICU because of her GI bleeding. She is yet to be seen by gastro enterology on consultation. Patient is extremely comfortable, and in no distress. She did receive so far 1 unit of packed RBCs. Patient denies being on any anticoagulation therapy except for Excedrin for left shoulder pain, and again she never had any history of GI bleeding, and no history of alcohol abuse. She does not drink any alcohol. Reevaluated today on 03/07/2019, continues to have intermittent episodes of melanotic stools, and coffee-ground emesis. Her last episode of melanotic stool s was about 1 hour ago. Patient is scheduled to undergo EGD by gastroenterology today. Hemoglobin dropped last night to 6.5 again, patient received so far a total of 3 units of packed RBCs. Remains hemodynamically stable, scheduled to undergo EGD today. Denies any chest pain, denies any abdominal pain, denies any headache blurred vision or dizziness. Patient was reevaluated today on 03/08/2019, patient remains in the ICU, and so far she has received a total of 5 units of packed RBCs. She underwent EGD yesterday, and she was found to have 2 small superficial do well developed bulb ulcers with no active bleeding but she had a small pigmented spot which may be the source of the recent bleed patient underwent cautery using a gold probe. She was also found to have antral erosive gastritis and small hiatal hernia. She did well postoperatively, however last night the patient was noted to be more restless agitated, and confused. 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 She was given Ativan, CT of the brain was done, and it came back unremarkable. Metabolically she has slightly elevated sodium at 146, and I plan to correct this by changing her IV fluid. Patient denies any history of alcohol abuse. She does not drink any alcohol according to her. Today she is receiving her fifth units of packed RBCs. And she is hemodynamically stable but confused and at times restless and agitated. Chest x-ray this morning is showing some atelectasis bilaterally, left more so than right, possibility of evolving infiltrate is not entirely ruled out. Patient is on Rocephin and she is also on Flagyl, being followed by infectious disease. She is maintained on 5 L nasal cannula, and O2 saturation is 98%, and she will be kept on incentive spirometry. Objective - Vital Signs Vital signs: Vital Signs Temp 97.6 F 03/08/19 08:12 Pulse 96 03/08/19 08:12 Resp 24 03/08/19 08:12 BP 121/66 03/08/19 08:12 Pulse Ox 98 03/08/19 08:12 Intake & Output 03/07/19 03/08/19 03/08/19 18:59 06:59 18:59 Intake Total 1450 2710 510 Output Total 710 755 90 Balance 740 1955 420 Weight 102.5 kg Intake: IV 1400 2400 200 Dextrose 5% in Water 1, 100 000 ml @ 100 mls/hr IV . Q10H [facility] Rx#:[id number] Potassium Chloride 10 meq 200 In Water For Injection 1 100ml.bag @ 100 mls/hr IVPB Q1H [facility] Rx#: [id number] Sodium Chloride 0.9% 1, 1200 1000 100 000 ml @ 100 mls/hr IV . Q10H [facility] Rx#:[id number] Sodium Chloride 0.9% 1, 1000 000 ml @ 999 mls/hr IV . Q1H1M [facility] Rx#:[id number] metroNIDAZOLE-NS PMX 500 200 mg In Saline 1 100ml.bag @ 100 mls/hr IVPB Q8H [facility] Rx#:[id number] Intake, IV Titration 50 Amount cefTRIAXone 1 gm In 50 Sodium Chloride 0.9% 50 ml @ 100 mls/hr IVPB Q24H [facility] Rx#:[id number] Blood Product 310 310 Rc As-1 Unit 0 310 [id number] Rc As-3 Unit 310 [id number] Output: Urine 710 755 90 Other: Voiding Method Indwelling Catheter Indwelling Catheter # Bowel Movements 1 1 - Exam Physical Exam: Revealed a 63-year-old female, confused but in no form of respiratory distress. Head: Atraumatic, normocephalic. HEENT:[Neck is supple.] [No neck masses.] [No thyromegaly.] [No JVD.] PERRLA, EOMI, no icterus. Mild conjunctival pallor noted. Chest: [Diminished breath sounds and crackles at the bases, no rhonchi and no wheezes.] Cardiac Exam: [Normal S1 and S2, no S3 gallop, no murmur.] Abdomen: [Soft, nontender, no megaly, no rebound, no guarding, normal bowel so unds.] Extremities: [No clubbing, no edema, no cyanosis.] Neurological Exam: [Lethargic and Confused, slightly agitated, follows simple instructions. Skin: No rashes Psychiatric: Blunted mood and affect, poor mental status, oriented times one. Lymphatics: No lymphadenopathy. - Labs CBC & Chem 7: 03/08/19 00:07 03/07/19 19:29 Labs: Abnormal Lab Results - Last 24 Hours (Table) 03/05/19 03/07/19 03/07/19 Range/Units 21:43 11:07 16:37 WBC 23.6 H 26.0 H (3.8-10.6) k/uL RBC 2.69 L 2.58 L (3.80-5.40) m/uL Hgb 8.7 L 8.2 L (11.4-16.0) gm/dL Hct 25.9 L 23.9 L (34.0-46.0) % RDW 16.4 H 17.3 H (11.5-15.5) % Plt Count 86 L 99 L (150-450) k/uL Neutrophils # 19.4 H (1.3-7.7) k/uL Neutrophils # (Manual) 19.35 H (1.3-7.7) k/uL Monocytes # 2.2 H (0-1.0) k/uL Sodium (137-145) mmol/L Chloride (98-107) mmol/L Carbon Dioxide (22-30) mmol/L BUN (7-17) mg/dL Creatinine (0.52-1.04) mg/dL Glucose (74-99) mg/dL AST (14-36) U/L Total Protein (6.3-8.2) g/dL Albumin (3.5-5.0) g/dL Crossmatch See Detail 03/07/19 03/07/19 03/08/19 Range/Units 19:29 19:29 00:07 WBC 23.8 H 20.8 H (3.8-10.6) k/uL RBC 2.43 L 2.11 L (3.80-5.40) m/uL Hgb 7.8 L 6.9 L* (11.4-16.0) gm/dL Hct 22.8 L 19.8 L* (34.0-46.0) % RDW 17.0 H 17.2 H (11.5-15.5) % Plt Count 85 L 78 L (150-450) k/uL Neutrophils # 18.1 H 15.6 H (1.3-7.7) k/uL Neutrophils # (Manual) (1.3-7.7) k/uL Monocytes # 1.6 H 1.4 H (0-1.0) k/uL Sodium 146 H (137-145) mmol/L Chloride 122 H (98-107) mmol/L Carbon Dioxide 21 L (22-30) mmol/L BUN 35 H (7-17) mg/dL Creatinine 1.13 H (0.52-1.04) mg/dL Glucose 128 H (74-99) mg/dL AST 72 H (14-36) U/L Total Protein 5.1 L (6.3-8.2) g/dL Albumin 3.0 L (3.5-5.0) g/dL Crossmatch Microbiology - Last 24 Hours (Table) 03/06/19 14:47 Blood Culture - Preliminary Blood No Growth after 24 hours Assessment and Plan Assessment: Impression: 1 acute upper GI bleeding, secondary to duodenal ulcer and erosive gastritis, patient has received a total of 5 units of packed RBCs so far. She is status post EGD and cautery by gold probe. This was done on 03/07/2019. 2 acute blood loss anemia, required a total of 5 units of packed RBCs so far. 3 distended gallbladder with cholelithiasis. No evidence of cholecystitis. 4 benign essential hypertension 5 elevated lactic acid, however no clear-cut evidence of sepsis based on the clinical presentation. 6 elevated troponin, likely troponin leak. Being addressed by cardiology. 7 mental status change, possibly ICU psychosis. 8 possible urinary tract infection, presently on Rocephin. 9 bibasilar atelectasis, doubt pneumonia based on the clinical history. Recommendation: Continue Protonix, continue to monitor serial hemoglobin and hematocrit, transfuse for hemoglobin below 7, continue to monitor the patient in the ICU, continue antibiotics empirically, added bronchodilators in the form of DuoNeb updrafts 4 times a day and when necessary, added incentive spirometry, reviewed the results of CT of the brain, recommended urological evaluation. Continue Ativan as needed for agitation. We'll continue to follow closely. Patient is also being followed by infectious disease. Presently on Rocephin and Flagyl. Blood cultures so far are negative. Urine cultures are pending. And again as far as his chest x-ray is concerned, I believe this is mostly atelectasis, strongly doubt pneumonia based on the clinical history. Will follow. Time with Patient: Less than 30
[2019-03-08] MEDS: LORazepam 2 MG/ML INJ IV PRN ×2 (09:52→13:01)
[2019-03-08 10:03] LABS: Calcium 8.2 mg/dL (8.4-10.2); Magnesium 2.1 mg/dL (1.6-2.3); Phosphorus 2.7 mg/dL (2.5-4.5); Potassium 3.6 mmol/L (3.5-5.1)
[2019-03-08] MEDS: IPRATROPIUM-ALBUTEROL 3 ML NEB INHALATION SCH ×3 (10:47→19:51)
[2019-03-08 11:00] LABS: Anisocytosis Slight; Basophils % (A) 0 %; Eosinophils % (A) 0 %; HCT 26.3 % (34.0-46.0); HGB 9.1 gm/dL (11.4-16.0); Lymphocytes # (A) 2.5 k/uL (1.0-4.8); Lymphocytes % (A) 14 %; MCH 31.5 pg (25.0-35.0); MCHC 34.7 g/dL (31.0-37.0); MCV 90.9 fL (80.0-100.0); Monocytes # (A) 1.1 k/uL (0-1.0); Monocytes % (A) 6 %; Neutrophils # (A) 13.9 k/uL (1.3-7.7); Neutrophils % (A) 78 %; RBC 2.89 m/uL (3.80-5.40); RDW 18.2 % (11.5-15.5); WBC 17.9 k/uL (3.8-10.6)
[2019-03-08 11:01] LABS: Platelet Count 62 k/uL (150-450)
--- NOTE | 2019-03-08 11:14 | PN ---
PROGRESS NOTE DATE OF DICTATION: 03/08/2019 Patient is a 63-year-old pleasant white female admitted to the hospital with acute GI bleed. She had multiple episodes of maroon-colored stools, and several episodes of coffee-ground hematemesis, dropped hemoglobin to 6.5 requiring total of 5 units of blood transfusion since hospitalization. She had upper endoscopy done by me yesterday afternoon that showed small duodenal bulbar ulcers with no active bleeding, but there was a small pigmented spot that was cauterized. Since then, she did not have any further episodes of bleeding. The patient remains confused. She had a CT of the brain done yesterday that was unremarkable. This morning she denies any abdominal pain. Reports no nausea, vomiting. PHYSICAL EXAMINATION: Appears comfortable, no apparent distress. VITAL SIGNS: Stable. Blood pressure is 111/58, pulse rate 96, temperature 97.6. HEENT examination unremarkable. Conjunctivae pink. Sclerae anicteric. Oral cavity no lesions. NECK: No jugular venous distention or lymph node enlargement. CHEST: Clear to auscultation. HEART: Regular rate and rhythm. ABDOMEN: Soft, it was slightly obese. Bowel sounds are positive. Nontender. EXTREMITIES: No pedal edema. SKIN: No rashes. NEUROLOGIC: Alert and oriented x3. No focal deficits. LABS: From today WBC is 20.8, hemoglobin is 6.9, platelets are 78,000. BUN and creatinine from today are pending. IMPRESSION: 1. Acute gastrointestinal bleed, status post EGD yesterday that showed small duodenal ulcers with small pigmented spot in the duodenal ulcer that was cauterized. Tagged RBC scan done after the upper endoscopy to rule out other sources of bleeding was negative. Since yesterday afternoon she did not have any further episodes of bleeding. She dropped hemoglobin to 6.9 in the middle of the night, was given 2 units of blood and so far she is status post 5 units of blood transfusion. Repeat CBC from this morning is still pending. 2. Altered mental status. Neurology has been consulted. RECOMMENDATIONS: 1. Continue with IV Protonix 40 b.i.d. 2. CBC every 6 hours and transfuse as needed. 3. If she has further bleeding, we will consider more endoscopy workup. At this time, we will continue with monitoring her labs closely. Thank you for this consultation. MMODL / IJN: [id number] /
--- NOTE | 2019-03-08 12:17 | P.GSCN ---
History of Present Illness Consult date: 03/08/19 History of present illness: 63-year-old female presented to the emergency department initially secondary to GI bleed. She was noted to have a significant drop in hemoglobin and has received multiple units of packed red blood cells secondary to this. She did undergo an EGD yesterday for evaluation of GI bleed and was found to have some duodenal ulcers, however no finding of any active bleeding. Over the past 30 hours, the patient has become confused and agitated. Initially, the patient was treated for ICU delirium but continues to have confusion and agitation. The patient was evaluated by infectious disease secondary to leukocytosis of 17,000 today. Cultures are being performed and patient is on Rocephin and Flagyl. There is concern that the patient may have a cholecystitis that is causing some metabolic encephalopathy. CT of the abdomen and pelvis was performed on admission and the patient was found to have a distended gallbladder with a large gallstone at the neck of the gallbladder. At that time, there was no clear inflammatory changes surrounding the gallbladder. Ultrasound was also performed that does show a distended gallbladder with a large gallstone at the neck of the gallbladder that appears to be immobile. Currently, the patient is afebrile. She is not answering questions due to her level of confusion. Review of Systems ROS unobtainable: due to mental status Past Medical History Past Medical History: Hypertension History of Any Multi-Drug Resistant Organisms: None Reported Past Surgical History: Orthopedic Surgery Additional Past Surgical History / Comment(s): ankle sx Past Psychological History: No Psychological Hx Reported Smoking Status: Never smoker Past Alcohol Use History: None Reported Past Drug Use History: None Reported Medications and Allergies Home Medications Medication Instructions Recorded Confirmed Type Atenolol [Tenormin] 50 mg PO DAILY 03/05/19 03/05/19 History Celecoxib [CeleBREX] 200 mg PO BID 03/05/19 03/05/19 History Diphenoxylate HCl/Atropine 2 tab PO QID PRN 03/05/19 03/05/19 History [Lomotil 2.5-0.025 mg Tablet] Losartan/Hydrochlorothiazide 1 tab PO DAILY 03/05/19 03/05/19 History [Losartan-Hctz 100-25 mg Tab] Multivitamins, Thera [Multivitamin 1 tab PO DAILY 03/05/19 03/05/19 History (formulary)] Ranitidine HCl [Zantac] 150 mg PO BID 03/05/19 03/05/19 History Allergies Allergy/AdvReac Type Severity Reaction Status Date / Time No Known Allergies Allergy Verified 03/05/19 22:04 Surgical - Exam Osteopathic Statement: *. No significant issues noted on an osteopathic structu ral exam other than those noted in the History and Physical/Consult. Vital Signs Temp Pulse Resp BP Pulse Ox 97.3 F L 84 20 101/62 95 03/05/19 21:35 03/05/19 21:35 03/05/19 21:35 03/05/19 21:35 03/05/19 21:35 - General Confused - Neck no masses, trachea midline - Respiratory normal respiratory effort - Abdomen Soft, tender to palpation in the right upper quadrant, nondistended, no rebound, no guarding Results - Labs 03/08/19 09:00 03/08/19 09:00 Abnormal Lab Results - Last 24 Hours (Table) 03/05/19 03/07/19 03/07/19 Range/Units 21:43 11:07 16:37 WBC 23.6 H 26.0 H (3.8-10.6) k/uL RBC 2.69 L 2.58 L (3.80-5.40) m/uL Hgb 8.7 L 8.2 L (11.4-16.0) gm/dL Hct 25.9 L 23.9 L (34.0-46.0) % RDW 16.4 H 17.3 H (11.5-15.5) % Plt Count 86 L 99 L (150-450) k/uL Neutrophils # 19.4 H (1.3-7.7) k/uL Neutrophils # (Manual) 19.35 H (1.3-7.7) k/uL Monocytes # 2.2 H (0-1.0) k/uL Sodium (137-145) mmol/L Chloride (98-107) mmol/L Carbon Dioxide (22-30) mmol/L BUN (7-17) mg/dL Creatinine (0.52-1.04) mg/dL Glucose (74-99) mg/dL Calcium (8.4-10.2) mg/dL AST (14-36) U/L Total Protein (6.3-8.2) g/dL Albumin (3.5-5.0) g/dL Crossmatch See Detail 03/07/19 03/07/19 03/08/19 Range/Units 19:29 19:29 00:07 WBC 23.8 H 20.8 H (3.8-10.6) k/uL RBC 2.43 L 2.11 L (3.80-5.40) m/uL Hgb 7.8 L 6.9 L* (11.4-16.0) gm/dL Hct 22.8 L 19.8 L* (34.0-46.0) % RDW 17.0 H 17.2 H (11.5-15.5) % Plt Count 85 L 78 L (150-450) k/uL Neutrophils # 18.1 H 15.6 H (1.3-7.7) k/uL Neutrophils # (Manual) (1.3-7.7) k/uL Monocytes # 1.6 H 1.4 H (0-1.0) k/uL Sodium 146 H (137-145) mmol/L Chloride 122 H (98-107) mmol/L Carbon Dioxide 21 L (22-30) mmol/L BUN 35 H (7-17) mg/dL Creatinine 1.13 H (0.52-1.04) mg/dL Glucose 128 H (74-99) mg/dL Calcium (8.4-10.2) mg/dL AST 72 H (14-36) U/L Total Protein 5.1 L (6.3-8.2) g/dL Albumin 3.0 L (3.5-5.0) g/dL Crossmatch 03/08/19 03/08/19 Range/Units 09:00 09:00 WBC 17.9 H (3.8-10.6) k/uL RBC 2.89 L (3.80-5.40) m/uL Hgb 9.1 L D (11.4-16.0) gm/dL Hct 26.3 L (34.0-46.0) % RDW 18.2 H (11.5-15.5) % Plt Count 62 L (150-450) k/uL Neutrophils # 13.9 H (1.3-7.7) k/uL Neutrophils # (Manual) (1.3-7.7) k/uL Monocytes # 1.1 H (0-1.0) k/uL Sodium 147 H (137-145) mmol/L Chloride 123 H (98-107) mmol/L Carbon Dioxide 21 L (22-30) mmol/L BUN 28 H (7-17) mg/dL Creatinine 1.08 H (0.52-1.04) mg/dL Glucose 130 H (74-99) mg/dL Calcium 8.2 L (8.4-10.2) mg/dL AST (14-36) U/L Total Protein (6.3-8.2) g/dL Albumin (3.5-5.0) g/dL Crossmatch Microbiology - Last 24 Hours (Table) 03/07/19 21:03 Urine Culture - Preliminary Urine,Catheterized 03/06/19 14:47 Blood Culture - Preliminary Blood No Growth after 24 hours Diabetes panel 03/07/19 03/08/19 Range/Units 19:29 09:00 Sodium 146 H 147 H (137-145) mmol/L Potassium 3.6 3.6 (3.5-5.1) mmol/L Chloride 122 H 123 H (98-107) mmol/L Carbon Dioxide 21 L 21 L (22-30) mmol/L BUN 35 H 28 H (7-17) mg/dL Creatinine 1.13 H 1.08 H (0.52-1.04) mg/dL Glucose 128 H 130 H (74-99) mg/dL Calcium 8.6 8.2 L (8.4-10.2) mg/dL AST 72 H (14-36) U/L ALT 31 (9-52) U/L Alkaline Phosphatase 57 (38-126) U/L Total Protein 5.1 L (6.3-8.2) g/dL Albumin 3.0 L (3.5-5.0) g/dL Calcium panel 03/07/19 03/08/19 Range/Units 19:29 09:00 Calcium 8.6 8.2 L (8.4-10.2) mg/dL Phosphorus 2.7 (2.5-4.5) mg/dL Albumin 3.0 L (3.5-5.0) g/dL Pituitary panel 03/07/19 03/08/19 Range/Units 19:29 09:00 Sodium 146 H 147 H (137-145) mmol/L Potassium 3.6 3.6 (3.5-5.1) mmol/L Chloride 122 H 123 H (98-107) mmol/L Carbon Dioxide 21 L 21 L (22-30) mmol/L BUN 35 H 28 H (7-17) mg/dL Creatinine 1.13 H 1.08 H (0.52-1.04) mg/dL Glucose 128 H 130 H (74-99) mg/dL Calcium 8.6 8.2 L (8.4-10.2) mg/dL Adrenal panel 03/07/19 03/08/19 Range/Units 19:29 09:00 Sodium 146 H 147 H (137-145) mmol/L Potassium 3.6 3.6 (3.5-5.1) mmol/L Chloride 122 H 123 H (98-107) mmol/L Carbon Dioxide 21 L 21 L (22-30) mmol/L BUN 35 H 28 H (7-17) mg/dL Creatinine 1.13 H 1.08 H (0.52-1.04) mg/dL Glucose 128 H 130 H (74-99) mg/dL Calcium 8.6 8.2 L (8.4-10.2) mg/dL Total Bilirubin 0.5 (0.2-1.3) mg/dL AST 72 H (14-36) U/L ALT 31 (9-52) U/L Alkaline Phosphatase 57 (38-126) U/L Total Protein 5.1 L (6.3-8.2) g/dL Albumin 3.0 L (3.5-5.0) g/dL Assessment and Plan (1) Cholelithiasis Narrative/Plan: 63-year-old female with distended gallbladder and cholelithiasis - I did discuss the case in depth with infectious disease. At this point, it is unclear whether the patient's current encephalopathy is metabolic with an active infection. Multiple cultures are being drawn for further investigation at this time. The patient is noted to have a large gallstone at the neck of the gallbladder and on previous imaging that was done over 48 hours ago did not show any wall thickening or pericholecystic fluid or fat stranding on imaging. Currently, on exam the patient does have tenderness in the right upper quadrant with palpation. Due to the patient's ICU stay and nothing by mouth status, it is possible that patient has an underlying cholecystitis. Due to her current confusion and mental status changes and recent GI bleed, I would recommend a cholecystostomy tube if all other sources of infection are ruled out. Currently, she is being treated with antibiotics that would cover cholecystitis. I will place a consultation to the interventional radiology team for evaluation for a cholecystostomy tube. I will also discuss the case with infectious disease. - Case was also discussed with the patient's who is at bedside. Thank you for this consultation, I look forward in providing in the patient's care. Current Visit: Yes Status: Acute Code(s): K80.20 - CALCULUS OF GALLBLADDER W/O CHOLECYSTITIS W/O OBSTRUCTION SNOMED Code(s): 058825742
--- NOTE | 2019-03-08 13:50 | P.CONS ---
History of Present Illness - Reason for Consult Consult date: 03/08/19 - Chief Complaint Leukocytosis - History of Present Illness 63-year-old female presents to Hospital change in her status. Her is at bedside and is able to relate that the patient's level of confusion is distinctly unusual. She has been a elementary school teacher's aide for 31 years and is ever had any great difficulties with her mentation. She's not alcohol user. Does not utilize recreational drugs. The patient presents to Hospital feeling poorly over a few days time. She was having difficulty with dark stool that appeared melanotic in that she had an episode of nausea and emesis and threw material that looked like coffee grounds. Because did not improve, she became concerned and presented to the emergency center where she was found to have with evaluation significant anemia and likely gastrointestinal bleeding. Consequently she was admitted to the intensive care unit has been seen by gastroenterology. Endoscopy was performed and there was a likely area of bleeding that underwent gold probe cautery. It is further reported that she did have a colonoscopy within the last year without significant abnormality is being found. At this time the patient is encephalopathic and further information comes from the . Before admission she was not having fevers or chills. She was not having much abdominal pain. She was having ongoing difficulties with her shoulder and was taking aspirin on a consistent nature. Review of Systems ROS unobtainable: due to mental status Past Medical History Past Medical History: Hypertension History of Any Multi-Drug Resistant Organisms: None Reported Past Surgical History: Orthopedic Surgery Additional Past Surgical History / Comment(s): ankle sx Past Psychological History: No Psychological Hx Reported Additional Psychological History / Comment(s): and lives in the family home with . Schoolbus class a regional truck driver for 31 years. Adult children. No alcohol use no drug use. No recent travel. No animals in the home Smoking Status: Never smoker Past Alcohol Use History: None Reported Past Drug Use History: None Reported Medications and Allergies Home Medications and Allergies Comment(s): Current Medications Albuterol/Ipratropium (Duoneb 0.5 Mg-3 Mg/3 Ml Soln) 3 ml INHALATION RT-QID [facility] Last Admin: 03/08/19 10:47 Dose: 3 ml Documented by: Atenolol (Tenormin) 50 mg PO DAILY [facility] Last Admin: 03/08/19 08:34 Dose: Not Given Documented by: Sodium Chloride (Saline 0.9%) 1,000 mls @ 100 mls/hr IV .Q10H [facility] Last Admin: 03/08/19 03:56 Dose: 100 mls/hr Documented by: Dextrose/Water (Dextrose 5%-Water Iv Soln) 1,000 mls @ 100 mls/hr IV .Q10H [facility] Stop: 03/08/19 17:52 Last Admin: 03/08/19 08:32 Dose: 100 mls/hr Documented by: Piperacillin Sod/Tazobactam (Sod 3.375 gm/ Sodium Chloride) 100 mls @ 25 mls/hr IVPB Q8HR [facility] Lorazepam (Ativan) 1 mg IV Q3HR PRN PRN Reason: Agitation or Acute Anxiety Last Admin: 03/08/19 13:01 Dose: 1 mg Documented by: Miscellaneous Information (Potassium Per Protocol) 1 each MISCELLANE DAILY PRN; Protocol PRN Reason: Per Protocol Multivitamins (Theragran) 1 each PO DAILY [facility] Last Admin: 03/08/19 08:35 Dose: Not Given Documented by: Naloxone HCl (Narcan) 0.2 mg IV Q2M PRN PRN Reason: Opioid Reversal Ondansetron HCl (Zofran) 4 mg IVP Q8HR PRN PRN Reason: Nausea And Vomiting Last Admin: 03/08/19 03:59 Dose: 4 mg Documented by: Pantoprazole Sodium (Protonix) 40 mg IVP BID [facility] Last Admin: 03/08/19 08:35 Dose: 40 mg Documented by: Home Medications Medication Instructions Recorded Confirmed Type Atenolol [Tenormin] 50 mg PO DAILY 03/05/19 03/05/19 History Celecoxib [CeleBREX] 200 mg PO BID 03/05/19 03/05/19 History Diphenoxylate HCl/Atropine 2 tab PO QID PRN 03/05/19 03/05/19 History [Lomotil 2.5-0.025 mg Tablet] Losartan/Hydrochlorothiazide 1 tab PO DAILY 03/05/19 03/05/19 History [Losartan-Hctz 100-25 mg Tab] Multivitamins, Thera [Multivitamin 1 tab PO DAILY 03/05/19 03/05/19 History (formulary)] Ranitidine HCl [Zantac] 150 mg PO BID 03/05/19 03/05/19 History Allergies Allergy/AdvReac Type Severity Reaction Status Date / Time No Known Allergies Allergy Verified 03/05/19 22:04 Physical Exam Vitals: Vital Signs Temp Pulse Pulse Resp BP BP Pulse Ox 03/08/19 11:00 101 H 13 102/80 98 03/08/19 10:58 100 03/08/19 10:47 91 03/08/19 10:30 87 18 116/69 97 03/08/19 10:00 80 24 107/86 94 L 03/08/19 09:30 92 16 107/86 98 03/08/19 09:00 96 13 121/66 98 03/08/19 08:30 93 12 121/66 97 03/08/19 08:12 97.6 F 96 24 121/66 98 03/08/19 08:00 97.6 F 89 24 111/58 95 03/08/19 07:30 101 H 19 111/58 97 03/08/19 07:00 96 24 111/58 97 03/08/19 06:30 103 H 26 H 97 03/08/19 06:02 98.4 F 102 H 24 113/65 97 03/08/19 06:00 104 H 19 113/82 98 03/08/19 05:32 98.3 F 102 H 18 113/82 96 03/08/19 05:30 105 H 23 97 03/08/19 05:22 98.0 F 105 H 20 113/84 97 03/08/19 05:02 98.1 F 98 23 128/82 98 03/08/19 05:00 105 H 25 H 125/82 97 03/08/19 04:30 117 H 20 96 03/08/19 04:00 98.5 F 108 H 97 16 125/73 93 L 03/08/19 03:48 98.1 F 103 H 22 115/71 96 03/08/19 03:30 112 H 27 H 111/63 88 L 03/08/19 03:18 98.5 F 105 H 23 111/63 96 03/08/19 03:08 98.5 F 112 H 21 105/67 92 L 03/08/19 03:00 114 H 21 105/67 98 03/08/19 02:30 118 H 22 95 03/08/19 02:00 114 H 13 105/71 95 03/08/19 01:30 115 H 14 94 L 03/08/19 01:15 118 H 18 98 03/08/19 01:00 97.8 F 113 H 16 122/73 96 03/08/19 00:45 112 H 19 95 03/08/19 00:10 97 18 03/07/19 23:45 97.8 F 116 H 14 133/72 97 03/07/19 23:41 124 H 21 96 03/07/19 23:30 124 H 28 H 96 03/07/19 23:15 116 H 20 97 03/07/19 23:00 118 H 16 131/65 96 03/07/19 22:45 113 H 18 97 03/07/19 22:30 111 H 19 97 03/07/19 22:15 124 H 16 127/98 97 03/07/19 22:00 112 H 12 99 03/07/19 21:45 131 H 17 97 03/07/19 21:30 118 H 19 96 03/07/19 21:15 122 H 26 H 94 L 03/07/19 21:02 97 03/07/19 21:00 114 H 16 145/90 98 03/07/19 20:45 118 H 31 H 133/61 93 L 03/07/19 20:30 28 H 96 03/07/19 20:15 115 H 20 98 03/07/19 20:00 98.2 F 115 H 97 16 133/61 90 L 03/07/19 19:00 115 H 22 124/69 94 L 03/07/19 18:30 120 H 20 160/79 96 03/07/19 18:15 117 H 18 159/74 96 03/07/19 18:00 113 H 18 153/85 97 03/07/19 17:15 112 H 15 139/83 96 03/07/19 17:00 110 H 16 128/67 96 03/07/19 16:30 115 H 11 L 128/67 95 03/07/19 16:00 98.1 F 112 H 25 H 123/60 91 L 03/07/19 15:00 110 H 22 140/69 96 03/07/19 14:30 115 H 29 H 140/69 98 03/07/19 14:00 109 H 26 H 127/57 96 03/07/19 13:30 114 H 18 127/57 92 L 03/07/19 13:00 110 H 12 153/71 98 Intake and Output 03/07/19 03/08/19 03/08/19 22:59 06:59 14:59 Intake Total 1150 2210 810 Output Total 400 530 197 Balance 750 1680 613 Intake: IV 1100 1900 500 Dextrose 5% in Water 1, 400 000 ml @ 100 mls/hr IV . Q10H [facility] Rx#:[id number] Potassium Chloride 10 meq 200 In Water For Injection 1 100ml.bag @ 100 mls/hr IVPB Q1H [facility] Rx#: [id number] Sodium Chloride 0.9% 1, 800 600 100 000 ml @ 100 mls/hr IV . Q10H [facility] Rx#:[id number] Sodium Chloride 0.9% 1, 1000 000 ml @ 999 mls/hr IV . Q1H1M [facility] Rx#:[id number] metroNIDAZOLE-NS PMX 500 100 100 mg In Saline 1 100ml.bag @ 100 mls/hr IVPB Q8H [facility] Rx#:[id number] Intake, IV Titration 50 Amount cefTRIAXone 1 gm In 50 Sodium Chloride 0.9% 50 ml @ 100 mls/hr IVPB Q24H [facility] Rx#:[id number] Blood Product 310 310 Rc As-1 Unit 0 310 [id number] Rc As-3 Unit 310 [id number] Output: Urine 400 530 197 Other: Voiding Method Indwelling Catheter Indwelling Catheter Indwelling Catheter # Bowel Movements 1 1 Weight 102.5 kg 63-year-old female who is an overweight build seems comfortable but is encephalopathic. HEENT: Anicteric conjunctiva are pink and moist nasal mucosa grossly intact without significant lesions, there is no thrush. Neck: The neck is supple without significant lymphadenopathy or thyromegaly. Lungs: Good bilateral air entry without significant crackles or wheezing. There is no significant bronchial sounds. There is no egophony or dullness. Heart: Regular rate and rhythm with an audible S1-S2, no S3 no S4. There is no significant murmur click or rub, PMI was nondisplaced. Abdomen: Positive bowel sounds soft seems to have some right upper quadrant tenderness on exam. She however is not communicating well so difficult to know the extent of discomfort. Extremities: The upper extremities have excellent pulses they are symmetric, no significant petechiae or telangiectasia. No splinter hemorrhages were noted. The lower extremities are free from significant edema. The peripheral pulses were 2+ and symmetric. Neuro: Arousable, is non-conversational, only moans to stimulation. However moves all extremities spontaneously Results CBC & Chem 7: 03/08/19 09:00 03/08/19 09:00 Labs: Abnormal Lab Results - Last 24 Hours (Table) 03/05/19 03/07/19 03/07/19 Range/Units 21:43 11:07 16:37 WBC 23.6 H 26.0 H (3.8-10.6) k/uL RBC 2.69 L 2.58 L (3.80-5.40) m/uL Hgb 8.7 L 8.2 L (11.4-16.0) gm/dL Hct 25.9 L 23.9 L (34.0-46.0) % RDW 16.4 H 17.3 H (11.5-15.5) % Plt Count 86 L 99 L (150-450) k/uL Neutrophils # 19.4 H (1.3-7.7) k/uL Neutrophils # (Manual) 19.35 H (1.3-7.7) k/uL Monocytes # 2.2 H (0-1.0) k/uL Sodium (137-145) mmol/L Chloride (98-107) mmol/L Carbon Dioxide (22-30) mmol/L BUN (7-17) mg/dL Creatinine (0.52-1.04) mg/dL Glucose (74-99) mg/dL Calcium (8.4-10.2) mg/dL AST (14-36) U/L Total Protein (6.3-8.2) g/dL Albumin (3.5-5.0) g/dL Crossmatch See Detail 03/07/19 03/07/19 03/08/19 Range/Units 19:29 19:29 00:07 WBC 23.8 H 20.8 H (3.8-10.6) k/uL RBC 2.43 L 2.11 L (3.80-5.40) m/uL Hgb 7.8 L 6.9 L* (11.4-16.0) gm/dL Hct 22.8 L 19.8 L* (34.0-46.0) % RDW 17.0 H 17.2 H (11.5-15.5) % Plt Count 85 L 78 L (150-450) k/uL Neutrophils # 18.1 H 15.6 H (1.3-7.7) k/uL Neutrophils # (Manual) (1.3-7.7) k/uL Monocytes # 1.6 H 1.4 H (0-1.0) k/uL Sodium 146 H (137-145) mmol/L Chloride 122 H (98-107) mmol/L Carbon Dioxide 21 L (22-30) mmol/L BUN 35 H (7-17) mg/dL Creatinine 1.13 H (0.52-1.04) mg/dL Glucose 128 H (74-99) mg/dL Calcium (8.4-10.2) mg/dL AST 72 H (14-36) U/L Total Protein 5.1 L (6.3-8.2) g/dL Albumin 3.0 L (3.5-5.0) g/dL Crossmatch 03/08/19 03/08/19 Range/Units 09:00 09:00 WBC 17.9 H (3.8-10.6) k/uL RBC 2.89 L (3.80-5.40) m/uL Hgb 9.1 L D (11.4-16.0) gm/dL Hct 26.3 L (34.0-46.0) % RDW 18.2 H (11.5-15.5) % Plt Count 62 L (150-450) k/uL Neutrophils # 13.9 H (1.3-7.7) k/uL Neutrophils # (Manual) (1.3-7.7) k/uL Monocytes # 1.1 H (0-1.0) k/uL Sodium 147 H (137-145) mmol/L Chloride 123 H (98-107) mmol/L Carbon Dioxide 21 L (22-30) mmol/L BUN 28 H (7-17) mg/dL Creatinine 1.08 H (0.52-1.04) mg/dL Glucose 130 H (74-99) mg/dL Calcium 8.2 L (8.4-10.2) mg/dL AST (14-36) U/L Total Protein (6.3-8.2) g/dL Albumin (3.5-5.0) g/dL Crossmatch Microbiology - Last 24 Hours (Table) 03/07/19 21:03 Urine Culture - Preliminary Urine,Catheterized 03/06/19 14:47 Blood Culture - Preliminary Blood No Growth after 24 hours Laboratory Results WBC 17.9 k/uL (3.8-10.6) H 03/08/19 09:00 RBC 2.89 m/uL (3.80-5.40) L 03/08/19 09:00 Hgb 9.1 gm/dL (11.4-16.0) L D 03/08/19 09:00 Hct 26.3 % (34.0-46.0) L 03/08/19 09:00 MCV 90.9 fL (80.0-100.0) 03/08/19 09:00 MCH 31.5 pg (25.0-35.0) 03/08/19 09:00 MCHC 34.7 g/dL (31.0-37.0) 03/08/19 09:00 RDW 18.2 % (11.5-15.5) H 03/08/19 09:00 Plt Count 62 k/uL (150-450) L 03/08/19 09:00 Neutrophils % 78 % 03/08/19 09:00 Neutrophils % (Manual) 82 % 03/07/19 11:07 Lymphocytes % 14 % 03/08/19 09:00 Lymphocytes % (Manual) 14 % 03/07/19 11:07 Monocytes % 6 % 03/08/19 09:00 Monocytes % (Manual) 4 % 03/07/19 11:07 Eosinophils % 0 % 03/08/19 09:00 Basophils % 0 % 03/08/19 09:00 Neutrophils # 13.9 k/uL (1.3-7.7) H 03/08/19 09:00 Neutrophils # (Manual) 19.35 k/uL (1.3-7.7) H 03/07/19 11:07 Lymphocytes # 2.5 k/uL (1.0-4.8) 03/08/19 09:00 Lymphocytes # (Manual) 3.30 k/uL (1.0-4.8) 03/07/19 11:07 Monocytes # 1.1 k/uL (0-1.0) H 03/08/19 09:00 Monocytes # (Manual) 0.94 k/uL (0-1.0) 03/07/19 11:07 Eosinophils # 0.0 k/uL (0-0.7) 03/08/19 09:00 Basophils # 0.0 k/uL (0-0.2) 03/08/19 09:00 Nucleated RBCs 0 /100 WBC (0-0) 03/07/19 11:07 Manual Slide Review Performed 03/07/19 19:29 Polychromasia Present 03/07/19 19:29 Hypochromasia (manual) Present 03/07/19 19:29 Anisocytosis Slight 03/08/19 09:00 Anisocytosis (manual) Present 03/07/19 19:29 PT 11.5 sec (9.0-12.0) 03/05/19 23:44 INR 1.1 (<1.2) 03/05/19 23:44 APTT 20.3 sec (22.0-30.0) L 03/05/19 23:44 Sodium 147 mmol/L (137-145) H 03/08/19 09:00 Potassium 3.6 mmol/L (3.5-5.1) 03/08/19 09:00 Chloride 123 mmol/L (98-107) H 03/08/19 09:00 Carbon Dioxide 21 mmol/L (22-30) L 03/08/19 09:00 Anion Gap 3 mmol/L 03/08/19 09:00 BUN 28 mg/dL (7-17) H 03/08/19 09:00 Creatinine 1.08 mg/dL (0.52-1.04) H 03/08/19 09:00 Est GFR (CKD-EPI)AfAm 63 (>60 ml/min/1.73 sqM) 03/08/19 09:00 Est GFR (CKD-EPI)NonAf 55 (>60 ml/min/1.73 sqM) 03/08/19 09:00 Glucose 130 mg/dL (74-99) H 03/08/19 09:00 POC Glucose (mg/dL) 130 mg/dL (75-99) H 03/06/19 14:50 POC Glu Purchasing Assistant ID Tomasa Warner 03/06/19 14:50 Lactic Ac Sepsis Rflx Y 03/05/19 23:24 Plasma Lactic Acid [place] 1.6 mmol/L (0.7-2.0) 03/07/19 19:29 Calcium 8.2 mg/dL (8.4-10.2) L 03/08/19 09:00 Phosphorus 2.7 mg/dL (2.5-4.5) 03/08/19 09:00 Magnesium 2.1 mg/dL (1.6-2.3) 03/08/19 09:00 Total Bilirubin 0.5 mg/dL (0.2-1.3) 03/07/19 19:29 AST 72 U/L (14-36) H 03/07/19 19:29 ALT 31 U/L (9-52) 03/07/19 19:29 Alkaline Phosphatase 57 U/L (38-126) 03/07/19 19:29 Ammonia <9 umol/L (<30) 03/07/19 19:29 Troponin I 0.284 ng/mL (0.000-0.034) H* 03/06/19 08:10 Total Protein 5.1 g/dL (6.3-8.2) L 03/07/19 19:29 Albumin 3.0 g/dL (3.5-5.0) L 03/07/19 19:29 Amylase 62 U/L (30-110) 03/05/19 21:43 Lipase 39 U/L (23-300) 03/05/19 21:43 Urine Color Light Yellow 03/07/19 03:00 Urine Appearance Clear (Clear) 03/07/19 03:00 Urine pH 5.5 (5.0-8.0) 03/07/19 03:00 Ur Specific [place] 1.027 (1.001-1.035) 03/07/19 03:00 Urine Protein Negative (Negative) 03/07/19 03:00 Urine Glucose (UA) Negative (Negative) 03/07/19 03:00 Urine Ketones Negative (Negative) 03/07/19 03:00 Urine Blood Negative (Negative) 03/07/19 03:00 Urine Nitrite Negative (Negative) 03/07/19 03:00 Urine Bilirubin Negative (Negative) 03/07/19 03:00 Urine Urobilinogen <2.0 mg/dL (<2.0) 03/07/19 03:00 Ur Leukocyte Esterase Negative (Negative) 03/07/19 03:00 Stool Occult Blood Positive (Negative) H 03/06/19 02:12 Blood Type O Positive 03/05/19 21:43 Blood Type Confirm O Positive 03/05/19 23:40 Blood Type Recheck CABO Indicated 03/05/19 21:43 Antibody Screen NEGATIVE 03/05/19 21:43 Crossmatch See Detail 03/05/19 21:43 Spec Expiration Date 03/08/2019 - 2343 03/05/19 21:43 Microbiology 03/07/19 21:03 Urine,Catheterized Urine Culture - Preliminary 03/06/19 14:47 Blood Blood Culture - Preliminary No Growth after 24 hours Assessment and Plan (1) Gastrointestinal hemorrhage Current Visit: Yes Status: Acute Code(s): K92.2 - GASTROINTESTINAL HEMORRHA GE, UNSPECIFIED SNOMED Code(s): 35079470 (2) Acute blood loss anemia Current Visit: Yes Status: Acute Code(s): D62 - ACUTE POSTHEMORRHAGIC ANEMIA SNOMED Code(s): 085798626 (3) Encephalopathy acute Current Visit: Yes Status: Acute Code(s): G93.40 - ENCEPHALOPATHY, UNSPECIFIED SNOMED Code(s): 90122158 (4) Leukocytosis Narrative/Plan: 63-year-old woman presents to Hospital with a several day history of what appears to be gastrointestinal bleeding with evidence of melena and coffee- ground emesis. The patient had significant anemia and has now had 5 units of pack red blood cells. With concerns of underlying infection metronidazole was added. She received 1 dose of Rocephin and also in the emergency center for the consult. At this time is of the patient does have a metabolic encephalopathy with undetermined etiology. Concerned this could be from underlying sepsis. Her imaging studies have been reviewed and there is evidence of the significant abnormality to the gallbladder and the exams. Agree the liver enzymes are not markedly abnormal however necrotic status sometimes they are not highly elevated. With current level of sepsis site had the pleasure of discussing the case with of general surgery. The patient may be a candidate for percutaneous cholecystostomy tube. The patient's been seen by pulmonary critical care and there is doubt that she has pneumonia at this time. The patient does have this to be leukocytosis that is multifactorial including her acute blood loss anemia and the multiple transfusions. However underlying sepsis is of concern especially given her encephalopathy. The possibility of encephalopathy could be based on antibiotic therapy and that metronidazole sometimes does have significant neuropsychiatric side effects in t his will be discontinued and the Rocephin metronidazole be transitioned to Zosyn for now. This would provide excellent coverage for chronic cholecystitis. Multiple cultures are in process and if cholecystostomy tube was placed culture of the material would also be helpful. Patient's was updated to the situation. Current Visit: Yes Status: Acute Code(s): D72.829 - ELEVATED WHITE BLOOD CELL COUNT, UNSPECIFIED SNOMED Code(s): 913186999 (5) Chronic cholecystitis with calculus Current Visit: Yes Status: Acute Code(s): K80.10 - CALCULUS OF GALLBLADDER W CHRONIC CHOLECYST W/O OBSTRUCTION SNOMED Code(s): 70717913
[2019-03-08] MEDS ORDERED: PIPERACILLIN-TAZOBACTAM 3.375 GM in SODIUM CHLORIDE 0.9% 100 ML IVPB SCH (14:00)
--- NOTE | 2019-03-08 14:09 | P.PN ---
Subjective Progress Note Date: 03/08/19 Principal diagnosis: Acute GI bleed Acute blood loss anemia 63-year-old female with known history of hypertension, no previous history of gastric ulcer disease, no previous history of diverticular disease, no previous history of any form of GI bleeding. Patient had a colonoscopy in the last year by Dr. Martinez, and she was told her colonoscopy was normal. Patient normally takes aspirin 325 mg 2-3 times per day for left shoulder pain. Patient presented mostly with few weeks history of loose bowel movements, about 2-3 times per day. However 2 days ago patient has been noticing melanotic stools and at one point she had an episode of coffee-ground emesis. Patient was conc erned that she may be losing blood, hence she presented to the ER. She had no abdominal pain, her initial hemoglobin on presentation was 11.0, went down to 6.6, and after a unit of blood was transfused, her hemoglobin came back up to 9.1. Her last episode of melanotic stool was about a few hours ago. Presently the patient is asymptomatic, hemodynamically stable, in no distress, and she was admitted to the ICU because of her GI bleeding. She is yet to be seen by gastroenterology on consultation. Patient is extremely comfortable, and in no distress. She did receive so far 1 unit of packed RBCs. Patient denies being on any anticoagulation therapy except for Excedrin for left shoulder pain, and again she never had any history of GI bleeding, and no history of alcohol abuse. She does not drink any alcohol. Reevaluated today on 03/07/2019, continues to have intermittent episodes of sixto notic stools, and coffee-ground emesis. Her last episode of melanotic stools was about 1 hour ago. Patient is scheduled to undergo EGD by gastroenterology today. Hemoglobin dropped last night to 6.5 again, patient received so far a total of 3 units of packed RBCs. Remains hemodynamically stable, scheduled to undergo EGD today. Denies any chest pain, denies any abdominal pain, denies any headache blurred vision or dizziness 03/08/2019, Patient is seen and evaluated with her present at bedside; patient remains in the ICU, and so far she has received a total of 5 units of packed RBCs. She underwent EGD yesterday, and she was found to have 2 small superfici al do well developed bulb ulcers with no active bleeding but she had a small pigmented spot which may be the source of the recent bleed patient underwent cautery using a gold probe. She was also found to have antral erosive gastritis and small hiatal hernia. She did well postoperatively, however last night the patient was noted to be more restless agitated, and confused. 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 She was given Ativan, CT of the brain was done, and it came back unremarkable. Metabolically she has slightly elevated sodium at 146, and I plan to correct this by changing her IV fluid. Patient denies any history of alcohol abuse. She does not drink any alcohol according to her. Today she is receiving her fifth units of packed RBCs. And she is hemodynamically stable but confused and at times restless and agitated. Chest x-ray this morning is showing some atelectasis bilaterally, left more so than right, possibility of evolving in filtrate is not entirely ruled out. Patient is on Zosyn and she is also on Flagyl, being followed by infectious disease; infection diseases agrees with IV Zosyn but Flagyl has been discontinued. She is maintained on 5 L nasal cannula, and O2 saturation is 98%, and she will be kept on incentive spirometry. Patient was seen by general surgery and is recommended cholecystostomy tube for possible cholecystitis to the patient is stable and is able to undergo cholecystectomy Neurology consultation is pending for altered mental status Objective - Vital Signs Vital signs: Vital Signs Temp 98.6 F 03/08/19 12:00 Pulse 106 H 03/08/19 12:30 Resp 29 H 03/08/19 12:30 BP 121/95 03/08/19 12:30 Pulse Ox 97 03/08/19 12:30 Intake & Output 03/07/19 03/08/19 03/08/19 18:59 06:59 18:59 Intake Total 1450 2710 810 Output Total 710 755 197 Balance 740 1955 613 Weight 102.5 kg Intake: IV 1400 2400 500 Dextrose 5% in Water 1, 400 000 ml @ 100 mls/hr IV . Q10H [facility] Rx#:[id number] Potassium Chloride 10 meq 200 In Water For Injection 1 100ml.bag @ 100 mls/hr IVPB Q1H [facility] Rx#: [id number] Sodium Chloride 0.9% 1, 1200 1000 100 000 ml @ 100 mls/hr IV . Q10H [facility] Rx#:[id number] Sodium Chloride 0.9% 1, 1000 000 ml @ 999 mls/hr IV . Q1H1M [facility] Rx#:[id number] metroNIDAZOLE-NS PMX 500 200 mg In Saline 1 100ml.bag @ 100 mls/hr IVPB Q8H [facility] Rx#:[id number] Intake, IV Titration 50 Amount cefTRIAXone 1 gm In 50 Sodium Chloride 0.9% 50 ml @ 100 mls/hr IVPB Q24H [facility] Rx#:[id number] Blood Product 310 310 Rc As-1 Unit 0 310 [id number] Rc As-3 Unit 310 [id number] Output: Urine 710 755 197 Other: Voiding Method Indwelling Catheter Indwelling Catheter Indwelling Catheter # Bowel Movements 1 1 - Exam Physical Exam: Revealed a 63-year-old female, pleasant not in distress. Head: Atraumatic, normocephalic. HEENT:[Neck is supple.] [No neck masses.] [No thyromegaly.] [No JVD.] PERRLA, EOMI, no icterus. Mild conjunctival pallor noted. Chest: [Clear throughout, no crackles, no rhonchi, no wheezes.] Cardiac Exam: [Normal S1 and S2, no S3 gallop, no murmur.] Abdomen: [Soft, nontender, no megaly, no rebound, no guarding, normal bowel sounds.] Extremities: [No clubbing, no edema, no cyanosis.] Neurological Exam: [No focal neurologic deficit.] Alert oriented 3. Skin: No rashes Psychiatric: Normal mood affect and mental status examination. Lymphatics: No lymphadenopathy. - Labs CBC & Chem 7: 03/08/19 09:00 03/08/19 09:00 Labs: Abnormal Lab Results - Last 24 Hours (Table) 03/05/19 03/07/19 03/07/19 Range/Units 21:43 11:07 16:37 WBC 23.6 H 26.0 H (3.8-10.6) k/uL RBC 2.69 L 2.58 L (3.80-5.40) m/uL Hgb 8.7 L 8.2 L (11.4-16.0) gm/dL Hct 25.9 L 23.9 L (34.0-46.0) % RDW 16.4 H 17.3 H (11.5-15.5) % Plt Count 86 L 99 L (150-450) k/uL Neutrophils # 19.4 H (1.3-7.7) k/uL Neutrophils # (Manual) 19.35 H (1.3-7.7) k/uL Monocytes # 2.2 H (0-1.0) k/uL Sodium (137-145) mmol/L Chloride (98-107) mmol/L Carbon Dioxide (22-30) mmol/L BUN (7-17) mg/dL Creatinine (0.52-1.04) mg/dL Glucose (74-99) mg/dL Calcium (8.4-10.2) mg/dL AST (14-36) U/L Total Protein (6.3-8.2) g/dL Albumin (3.5-5.0) g/dL Crossmatch See Detail 03/07/19 03/07/19 03/08/19 Range/Units 19:29 19:29 00:07 WBC 23.8 H 20.8 H (3.8-10.6) k/uL RBC 2.43 L 2.11 L (3.80-5.40) m/uL Hgb 7.8 L 6.9 L* (11.4-16.0) gm/dL Hct 22.8 L 19.8 L* (34.0-46.0) % RDW 17.0 H 17.2 H (11.5-15.5) % Plt Count 85 L 78 L (150-450) k/uL Neutrophils # 18.1 H 15.6 H (1.3-7.7) k/uL Neutrophils # (Manual) (1.3-7.7) k/uL Monocytes # 1.6 H 1.4 H (0-1.0) k/uL Sodium 146 H (137-145) mmol/L Chloride 122 H (98-107) mmol/L Carbon Dioxide 21 L (22-30) mmol/L BUN 35 H (7-17) mg/dL Creatinine 1.13 H (0.52-1.04) mg/dL Glucose 128 H (74-99) mg/dL Calcium (8.4-10.2) mg/dL AST 72 H (14-36) U/L Total Protein 5.1 L (6.3-8.2) g/dL Albumin 3.0 L (3.5-5.0) g/dL Crossmatch 03/08/19 03/08/19 Range/Units 09:00 09:00 WBC 17.9 H (3.8-10.6) k/uL RBC 2.89 L (3.80-5.40) m/uL Hgb 9.1 L D (11.4-16.0) gm/dL Hct 26.3 L (34.0-46.0) % RDW 18.2 H (11.5-15.5) % Plt Count 62 L (150-450) k/uL Neutrophils # 13.9 H (1.3-7.7) k/uL Neutrophils # (Manual) (1.3-7.7) k/uL Monocytes # 1.1 H (0-1.0) k/uL Sodium 147 H (137-145) mmol/L Chloride 123 H (98-107) mmol/L Carbon Dioxide 21 L (22-30) mmol/L BUN 28 H (7-17) mg/dL Creatinine 1.08 H (0.52-1.04) mg/dL Glucose 130 H (74-99) mg/dL Calcium 8.2 L (8.4-10.2) mg/dL AST (14-36) U/L Total Protein (6.3-8.2) g/dL Albumin (3.5-5.0) g/dL Crossmatch Microbiology - Last 24 Hours (Table) 03/07/19 21:03 Urine Culture - Preliminary Urine,Catheterized 03/06/19 14:47 Blood Culture - Preliminary Blood No Growth after 24 hours Assessment and Plan Assessment: 1 acute upper GI bleeding, most likely secondary to erosive gastritis or possibly underlying peptic ulcer disease. 2 acute blood loss anemia 3 distended gallbladder with cholelithiasis. No evidence of cholecystitis. 4 benign essential hypertension 5 elevated lactic acid, however no clear-cut evidence of sepsis based on the clinical presentation. 6 elevated troponin, likely troponin leak. Being addressed by cardiology. Recommendation: Continue Protonix, continue to monitor serial hemoglobin and hematocrit, transfuse for hemoglobin below 7, agree with EGD to be done today, cardiology has yet to evaluate the patient, continue to monitor in the ICU as long as the patient is having active bleeding. Based on the EGD findings today, further recommendations will follow. Time with Patient: Greater than 30
[2019-03-08 15:24] LABS: Anisocytosis Slight; Basophils % (A) 0 %; Calcium 8.3 mg/dL (8.4-10.2); Eosinophils % (A) 0 %; HCT 25.6 % (34.0-46.0); HGB 8.6 gm/dL (11.4-16.0); Lymphocytes # (A) 2.8 k/uL (1.0-4.8); Lymphocytes % (A) 18 %; MCH 31.4 pg (25.0-35.0); MCHC 33.8 g/dL (31.0-37.0); Mean Platelet Volume 8.7; Monocytes # (A) 1.2 k/uL (0-1.0); Monocytes % (A) 7 %; Neutrophils # (A) 11.2 k/uL (1.3-7.7); Neutrophils % (A) 72 %; Potassium 3.6 mmol/L (3.5-5.1); RBC 2.75 m/uL (3.80-5.40); RDW 16.4 % (11.5-15.5); WBC 15.7 k/uL (3.8-10.6)
[2019-03-08 15:33] LABS: Platelet Count 57 k/uL (150-450)
--- NOTE | 2019-03-08 18:35 | PN ---
PROGRESS NOTE This patient's electronic medical records and clinical panel and course were reviewed. The patient's condition discussed with the nurse. I was requested to see this patient for abnormal troponin. Patient is admitted with a GI bleeding. She underwent a gastroscopy yesterday and she was found to have two small duodenal ulcers. Overall postoperative course was uneventful. However, during the night the patient became more restless, agitated and confused and metabolic encephalopathy is being considered. The patient has received a total of 5 units of packed cells. No complaint of chest pain has been noted. No dysrhythmias are noted. Echocardiogram reveals overall normal left ventricular systolic function. The patient's blood pressure is 121/66 mmHg. Respiratory rate is 24, pulse is 96. First and second heart sounds are normal. Lungs are clear to auscultation and percussion. ASSESSMENT AND PLAN: This patient had a mild elevation in the troponin because of high demand mismatch due to the GI bleeding. Possible metabolic encephalopathy, possibility of acute cholecystitis are considered. The patient's echocardiogram reveals normal sinus rhythm. At present the patient is mildly tachycardic, possibly secondary to withdrawal of the atenolol. We will continue the current medications. MMODL / IJN: [id number] /
[2019-03-08] MEDS ORDERED: DEXTROSE 5%-0.45% NACL 1,000 ML IV SCH (19:00)
--- NOTE | 2019-03-08 19:52 | P.CNNES ---
History of Present Illness Consult date: 03/08/19 Reason for Consult: Mental status change History of Present Illness: Patient is a 63-year-old female who is otherwise healthy, came to the hospital on 03/05/2019 at 9:13 PM for GI bleed. Patient was having bright red blood vomiting 4-5 times a day for 2-3 days. Patient has been taking aspirin for left shoulder pain for shoulder injury that occurred couple weeks ago. Patient was going to double door, and the left door was closed and she brushed her shoulder against the door, fracturing the shoulder. She has been taking aspirin for pain. Patient also has been on Celebrex and atenolol. Patient developed mental status changes while in the hospital. Patient developed significant anemia due to GI bleed. Patient underwent EGD, which revealed duodenal ulcer, which was cauterized. There was also entered erosive gastritis and small hiatal hernia. Patient has been having some nausea, occasional vomiting. Patient mental status has got worse. Computed tomography scan of the head was performed early this morning, which revealed no acute hemorrhage hydrocephalus or mass effect. Age- indeterminate infarct in the right frontal lobe. 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 On my review, these appear subacute, especially in the left cerebellar region. Patient's hemoglobin was 11.0 on arrival, but dropped down to 6.6 the next day, and has received 5 units of blood. Most recent hemoglobin is 8.6. Patient's white cells were also significantly elevated 17.0 on arrival, then went up to 26, and now is down to 15.7. Patient's platelet count also have decreased to 57 from 280. Patient's BUN is 26, creatinine 1.06. Patient's troponins have been elevated from 0.1952 0.284. Cardiology is on the case. Patient has no diabetes, blood pressure. No tobacco use or alcohol. Review of Systems ROS unobtainable: due to mental status Past Medical History Past Medical History: Hypertension History of Any Multi-Drug Resistant Organisms: None Reported Past Surgical History: Orthopedic Surgery Additional Past Surgical History / Comment(s): ankle sx Past Psychological History: No Psychological Hx Reported Additional Psychological History / Comment(s): and lives in the family home with . [employer] hazmat cdl driver for 31 years. Adult children. No alcohol use no drug use. No recent travel. No animals in the home Smoking Status: Never smoker Past Alcohol Use History: None Reported Past Drug Use History: None Reported Medications and Allergies Home Medications Medication Instructions Recorded Confirmed Type Atenolol [Tenormin] 50 mg PO DAILY 03/05/19 03/05/19 History Celecoxib [CeleBREX] 200 mg PO BID 03/05/19 03/05/19 History Diphenoxylate HCl/Atropine 2 tab PO QID PRN 03/05/19 03/05/19 History [Lomotil 2.5-0.025 mg Tablet] Losartan/Hydrochlorothiazide 1 tab PO DAILY 03/05/19 03/05/19 History [Losartan-Hctz 100-25 mg Tab] Multivitamins, Thera [Multivitamin 1 tab PO DAILY 03/05/19 03/05/19 History (formulary)] Ranitidine HCl [Zantac] 150 mg PO BID 03/05/19 03/05/19 History Allergies Allergy/AdvReac Type Severity Reaction Status Date / Time No Known Allergies Allergy Verified 03/05/19 22:04 Physical Examination - Vital Signs Vital Signs: Vital Signs Temp Pulse Pulse Resp BP BP Pulse Ox 03/08/19 18:00 96 23 109/73 95 03/08/19 17:30 110 H 25 H 109/73 96 03/08/19 17:00 109 H 21 124/67 96 03/08/19 16:30 111 H 28 H 124/67 93 L 03/08/19 16:00 98.1 F 112 H 21 113/59 97 03/08/19 15:57 106 H 03/08/19 15:47 106 H 03/08/19 15:30 107 H 22 113/59 95 03/08/19 15:00 87 19 124/66 97 03/08/19 14:30 112 H 38 H 124/66 96 03/08/19 14:00 112 H 25 H 109/67 96 03/08/19 13:30 30 H 109/67 97 03/08/19 13:00 103 H 22 121/95 95 03/08/19 12:30 106 H 29 H 121/95 97 03/08/19 12:00 98.6 F 104 H 26 H 102/80 96 03/08/19 11:30 104 H 22 102/80 97 03/08/19 11:00 101 H 13 102/80 98 03/08/19 10:58 100 06/02/19 10:47 91 03/08/19 10:30 87 18 116/69 97 03/08/19 10:00 80 24 107/86 94 L 03/08/19 09:30 92 16 107/86 98 03/08/19 09:00 96 13 121/66 98 03/08/19 08:30 93 12 121/66 97 03/08/19 08:12 97.6 F 96 24 121/66 98 03/08/19 08:00 97.6 F 89 24 111/58 95 02 07:30 101 H 19 111/58 97 03/08/19 07:00 96 24 111/58 97 03/08/19 06:30 103 H 26 H 97 03/08/19 06:02 98.4 F 102 H 24 113/65 97 02 06:00 104 H 19 113/82 98 03/08/19 05:32 98.3 F 102 H 18 113/82 96 03/08/19 05:30 105 H 23 97 03/08/19 05:22 98.0 F 105 H 20 113/84 97 03/08/19 05:02 98.1 F 98 23 128/82 98 03/08/19 05:00 105 H 25 H 125/82 97 03/08/19 04:30 117 H 20 96 03/08/19 04:00 98.5 F 108 H 97 16 125/73 93 L 03/08/19 03:48 98.1 F 103 H 22 115/71 96 03/08/19 03:30 112 H 27 H 111/63 88 L 03/08/19 03:18 98.5 F 105 H 23 111/63 96 02 03:08 98.5 F 112 H 21 105/67 92 L 03/08/19 03:00 114 H 21 105/67 98 0602 02:30 118 H 22 95 02 02:00 114 H 13 105/71 95 0602 01:30 115 H 14 94 L 03/08/19 01:15 118 H 18 98 02 01:00 97.8 F 113 H 16 122/73 96 02 00:45 112 H 19 95 03/08/19 00:10 97 18 03/07/19 23:45 97.8 F 116 H 14 133/72 97 03/07/19 23:41 124 H 21 96 03/07/19 23:30 124 H 28 H 96 03/07/19 23:15 116 H 20 97 03/07/19 23:00 118 H 16 131/65 96 03/07/19 22:45 113 H 18 97 03/07/19 22:30 111 H 19 97 03/07/19 22:15 124 H 16 127/98 97 03/07/19 22:00 112 H 12 99 03/07/19 21:45 131 H 17 97 03/07/19 21:30 118 H 19 96 03/07/19 21:15 122 H 26 H 94 L 03/07/19 21:02 97 03/07/19 21:00 114 H 16 145/90 98 03/07/19 20:45 118 H 31 H 133/61 93 L 03/07/19 20:30 28 H 96 03/07/19 20:15 115 H 20 98 03/07/19 20:00 98.2 F 115 H 97 16 133/61 90 L Intake and Output 03/08/19 03/08/19 03/08/19 06:59 14:59 22:59 Intake Total 2210 1510 400 Output Total 530 342 120 Balance 1680 1168 280 Intake: IV 1900 1200 400 Dextrose 5% in Water 1, 700 400 000 ml @ 100 mls/hr IV . Q10H [facility] Rx#:[id number] Piperacillin-Tazobactam 3 100 .375 gm In Sodium Chloride 0.9% 100 ml @ 25 mls/hr IVPB Q8HR [facility] Rx# :[id number] Potassium Chloride 10 meq 200 200 In Water For Injection 1 100ml.bag @ 100 mls/hr IVPB Q1H [facility] Rx#: [id number] Sodium Chloride 0.9% 1, 600 100 000 ml @ 100 mls/hr IV . Q10H [facility] Rx#:[id number] Sodium Chloride 0.9% 1, 1000 000 ml @ 999 mls/hr IV . Q1H1M [facility] Rx#:[id number] metroNIDAZOLE-NS PMX 500 100 100 mg In Saline 1 100ml.bag @ 100 mls/hr IVPB Q8H [facility] Rx#:[id number] Blood Product 310 310 Rc As-1 Unit 0 310 [id number] As-3 Unit 310 [id number] Output: Urine 530 342 120 Other: Voiding Method Indwelling Catheter Indwelling Catheter Indwelling Catheter # Bowel Movements 1 Weight 102.5 kg On examination patient is a late middle-aged female, who appears severely encephalopathic. Patient is moaning at times. Patient did not speak much, but whatever she spoke was clear. Her pupils are round and reacting to light. Visual lizama could not be tested. Patient was having some roving eye movements. Patient does bring her eyes slightly to the sides but not all the way, cannot rule out gaze dysfunction. Face appears symmetric. Her plastic outfitter is slightly weaker on the left as compared to the right. Biceps and triceps appears normal on the right. I did not check it on the left because of fracture. Her ankles and toes are normal. Patient has possible bilateral withdrawal versus Babinski. Reflexes are somewhat brisk in the legs bilaterally. Results - Laboratory Findings CBC and BMP: 03/08/19 14:48 03/08/19 14:48 Abnormal Lab Findings: Abnormal Labs 03/05/19 03/05/19 03/05/19 21:43 21:43 21:43 WBC 17.0 H RBC 3.68 L Hgb 11.0 L Hct 33.6 L RDW Plt Count Neutrophils # 13.5 H Neutrophils # (Manual) Monocytes # APTT Sodium Chloride Carbon Dioxide BUN 49 H Creatinine 1.36 H Glucose 164 H POC Glucose (mg/dL) Plasma Lactic Acid Khalif Calcium AST Troponin I 0.195 H* Total Protein Albumin Stool Occult Blood Crossmatch 03/05/19 03/05/19 03/05/19 21:43 22:52 23:44 WBC RBC Hgb Hct RDW Plt Count Neutrophils # Neutrophils # (Manual) Monocytes # APTT 20.3 L Sodium Chloride Carbon Dioxide BUN Creatinine Glucose POC Glucose (mg/dL) Plasma Lactic Acid Khalif 2.6 H* Calcium AST Troponin I Total Protein Albumin Stool Occult Blood Crossmatch See Detail 03/06/19 03/06/19 03/06/19 02:12 02:59 02:59 WBC RBC Hgb Hct RDW Plt Count Neutrophils # Neutrophils # (Manual) Monocytes # APTT Sodium Chloride Carbon Dioxide BUN Creatinine Glucose POC Glucose (mg/dL) Plasma Lactic Acid Khalif 2.2 H* Calcium AST Troponin I 0.282 H* Total Protein Albumin Stool Occult Blood Positive H Crossmatch 03/06/19 03/06/19 03/06/19 08:10 08:10 08:10 WBC RBC Hgb Hct RDW Plt Count Neutrophils # Neutrophils # (Manual) Monocytes # APTT Sodium Chloride 114 H Carbon Dioxide 21 L BUN 45 H Creatinine 1.09 H Glucose 153 H POC Glucose (mg/dL) Plasma Lactic Acid Khalif 2.6 H* Calcium 7.4 L AST Troponin I 0.284 H* Total Protein 4.6 L Albumin 2.5 L Stool Occult Blood Crossmatch 03/06/19 03/06/19 03/06/19 08:10 14:47 14:47 WBC 16.6 H RBC 2.13 L 2.96 L Hgb 6.6 L* D 9.1 L D Hct 19.6 L* 27.3 L RDW Plt Count Neutrophils # Neutrophils # (Manual) Monocytes # APTT Sodium Chloride Carbon Dioxide BUN Creatinine Glucose POC Glucose (mg/dL) Plasma Lactic Acid Khalif 4.0 H* Calcium AST Troponin I Total Protein Albumin Stool Occult Blood Crossmatch 03/06/19 03/06/19 03/07/19 14:50 21:56 05:22 WBC 18.1 H RBC 2.08 L Hgb 6.5 L* D Hct 19.2 L* RDW Plt Count Neutrophils # 14.7 H Neutrophils # (Manual) Monocytes # APTT Sodium Chloride 117 H Carbon Dioxide 20 L BUN 43 H Creatinine 1.13 H Glucose 151 H POC Glucose (mg/dL) 130 H Plasma Lactic Acid Khalif Calcium AST Troponin I Total Protein 5.1 L Albumin 3.0 L Stool Occult Blood Crossmatch 03/07/19 03/07/19 03/07/19 05:22 11:07 16:37 WBC 20.6 H 23.6 H 26.0 H RBC 3.02 L 2.69 L 2.58 L Hgb 9.5 L D 8.7 L 8.2 L Hct 28.6 L 25.9 L 23.9 L RDW 16.3 H 16.4 H 17.3 H Plt Count 112 L 86 L 99 L Neutrophils # 15.6 H 19.4 H Neutrophils # (Manual) 19.35 H Monocytes # 2.2 H APTT Sodium Chloride Carbon Dioxide BUN Creatinine Glucose POC Glucose (mg/dL) Plasma Lactic Acid Khalif Calcium AST Troponin I Total Protein Albumin Stool Occult Blood Crossmatch 03/07/19 03/07/19 03/08/19 19:29 19:29 00:07 WBC 23.8 H 20.8 H RBC 2.43 L 2.11 L Hgb 7.8 L 6.9 L* Hct 22.8 L 19.8 L* RDW 17.0 H 17.2 H Plt Count 85 L 78 L Neutrophils # 18.1 H 15.6 H Neutrophils # (Manual) Monocytes # 1.6 H 1.4 H APTT Sodium 146 H Chloride 122 H Carbon Dioxide 21 L BUN 35 H Creatinine 1.13 H Glucose 128 H POC Glucose (mg/dL) Plasma Lactic Acid Khalif Calcium AST 72 H Troponin I Total Protein 5.1 L Albumin 3.0 L Stool Occult Blood Crossmatch 03/08/19 03/08/19 03/08/19 09:00 09:00 14:48 WBC 17.9 H 15.7 H RBC 2.89 L 2.75 L Hgb 9.1 L D 8.6 L Hct 26.3 L 25.6 L RDW 18.2 H 16.4 H Plt Count 62 L 57 L Neutrophils # 13.9 H 11.2 H Neutrophils # (Manual) Monocytes # 1.1 H 1.2 H APTT Sodium 147 H Chloride 123 H Carbon Dioxide 21 L BUN 28 H Creatinine 1.08 H Glucose 130 H POC Glucose (mg/dL) Plasma Lactic Acid Khalif Calcium 8.2 L AST Troponin I Total Protein Albumin Stool Occult Blood Crossmatch 03/08/19 14:48 WBC RBC Hgb Hct RDW Plt Count Neutrophils # Neutrophils # (Manual) Monocytes # APTT Sodium 146 H Chloride 123 H Carbon Dioxide 20 L BUN 26 H Creatinine 1.08 H Glucose 111 H POC Glucose (mg/dL) Plasma Lactic Acid Khalif Calcium 8.3 L AST Troponin I Total Protein Albumin Stool Occult Blood Crossmatch Assessment and Plan Assessment: * Altered mental status with significant encephalopathy. * Abnormal computed tomography scan of head with evidence of bilateral cerebellar ischemic lesions, appears subacute to chronic in nature, at least 48-72 hours old, or older. Rule out vertebral artery dissection. Rule out cardioembolism. * Anemia, thrombocytopenia, mild renal dysfunction, rule out TTP. * Elevated cardiac enzymes. * Status post GI bleed, due to duodenal ulcer. Status post cauterization. * Hypertension Plan: * Stat CTA of head and neck to rule out vertebral artery dissection. * Stat MRI of the brain to evaluate for acute to subacute versus chronic cerebellar ischemia. * Consider hematology consultation to rule out TTP. * Discussed with gastroenterology, who cleared for aspirin. However on reviewing her blood test, with low platelets, I'm somewhat concerned about thrombocytopenia and recent GI bleed. We will check above test, and if find obvious embolic source, only then we will start her on aspirin. * As there is no neurology coverage for the next 4 days, therefore may consider transfer to a tertiary care center. * Discuss with primary attending.
[2019-03-08 20:33] LABS: Anisocytosis Slight; Basophils % (A) 0 %; Eosinophils % (A) 0 %; HCT 24.7 % (34.0-46.0); HGB 7.9 gm/dL (11.4-16.0); Lymphocytes # (A) 2.3 k/uL (1.0-4.8); Lymphocytes % (A) 18 %; MCH 30.1 pg (25.0-35.0); MCHC 32.1 g/dL (31.0-37.0); MCV 93.5 fL (80.0-100.0); Mean Platelet Volume 8.6; Monocytes # (A) 0.9 k/uL (0-1.0); Monocytes % (A) 7 %; Neutrophils # (A) 9.1 k/uL (1.3-7.7); Neutrophils % (A) 72 %; RBC 2.64 m/uL (3.80-5.40); WBC 12.7 k/uL (3.8-10.6)
[2019-03-08 20:39] LABS: Platelet Count 51 k/uL (150-450)
[2019-03-08 20:56] LABS: Calcium 7.8 mg/dL (8.4-10.2); Potassium 3.3 mmol/L (3.5-5.1)
--- NOTE | 2019-03-08 21:36 | CT ---
EXAMINATION TYPE: CT angio head neck DATE OF EXAM: 03/08/2019 HISTORY: Altered mental status COMPARISON: NONE CT DLP: 479 mGycm. Automated Exposure Control for Dose Reduction was Utilized. TECHNIQUE: CTA scan of the neck is performed with IV Contrast, patient injected with 50 mL of Isovue 370, axial images are obtained, coronal and sagittal reformatted images are reviewed. Three-D recons tructed images are created on an independent workstation and reviewed. There is straightening of usual cervical lordosis that may relate to patient positioning, muscular sp rain or spasm. Posterior disc osteophyte complexes are seen at C4-C5 and C5-C6. FINDINGS: Carotid/Vascular Structures: The common carotid arteries have a medial course coursing nearly posteri or to the oropharynx. The carotid bulbs, common carotid arteries, and internal carotid arteries of th e neck are patent without hemodynamically significant stenosis. There is a conventional three-vessel branch pattern of the aortic arch. The vertebral arteries appear patent. There is dominance of the ri ght vertebral artery as the left is extremely diminutive between the foramen magnum and basilar arter y. The posterior circulation overall is very diminutive in caliber. Posterior communicating arteries are patent and [place] appears intact although the anterior tibial artery appears extremely diminutive. No hemodynamically significant stenosis in the major intracranial vasculature no aneurysm al outpouching or vascular dissection. Other: There is partial visualization of pleural effusions, interlobular septal thickening and pulmon xavier edema in the lung apices. Mild to moderate multilevel degenerative changes of the cervical spine are seen. There are hypoplastic right mastoid air cells. Remaining paranasal sinuses and left mastoid air cells are well aerated. IMPRESSION: 1. No hemodynamically significant stenosis, aneurysmal outpouching or dissection in the major intracr anial vasculature or vasculature of the neck. 2. The left vertebral artery between the foramen magnum and basilar artery is extremely diminutive wi th small size of the entirety of the posterior circulation. Vertebrobasilar insufficiency is possible given the extreme small size of the left vertebral artery.
[2019-03-08] MEDS ORDERED: POTASSIUM CHLORIDE 10 MEQ in WATER FOR INJECTION 1 100ML.BAG IVPB SCH (22:00)
[2019-03-08 22:10] VITALS: TEMP 99.5
[2019-03-08 23:26] VITALS: BP 147/73; PULSE 106; RESP 18
--- NOTE | 2019-03-10 13:57 | CDI ---
Documentation Clarification Form Date: 03/10/19 From: Ida Collins Phone: If questions call Danielle Francisco @ [phone], Hours-8:30 am & 5 pm M- F Admit Date: 03/06/2019 12:21:00 PM Patient Name: Rhianna Caballero Visit Number: [id number] Discharge Date: 03/08/2019 11:38:00 PM ATTENTION: The Clinical Documentation Specialists (CDI) and [facility] Coding Staff appreciate your assistance in clarifying documentation. Please respond to the clarification below the line at the bottom and electronically sign. The CDI & [facility] Coding staff will review the response and follow-up if needed. Please note: Queries are made part of the Legal Health Record. If you have any questions, please contact the author of this message via ITS. Dr. Nupur Cole The patient had a mild elevation in the troponin because of high demand mismatch due to GI bleeding. History/Risk Factors: GI bleed, HTN Clinical Indicators: significant lactic acidosis Troponin: 0.195, 0.282, 0.284 Echo: borderline left ventricular hypertrophy, EF between 60-65%m aortic valve sclerosis, mild to moderate arotic regurgitation, normal inspratory collapse consistent with estimated right atrial pressure of 5 mmHg In your professional opinion, can you please clarify the high demand mismatch? Type 2 [place] Abnormal troponin level Other, please specify Unable to determine MTDD
--- NOTE | 2019-03-10 14:12 | CDI ---
Documentation Clarification Form Date: 03/10/19 From: Ida Collins Phone: If questions call Danielle Francisco @ [phone], Hours-8:30 am & 5 pm M- F Admit Date: 03/06/2019 12:21:00 PM Patient Name: Rhianna Caballero Visit Number: [id number] Discharge Date: 03/08/2019 11:38:00 PM ATTENTION: The Clinical Documentation Specialists (CDI) and [facility] Coding Staff appreciate your assistance in clarifying documentation. Please respond to the clarification below the line at the bottom and electronically sign. The CDI & [facility] Coding staff will review the response and follow-up if needed. Please note: Queries are made part of the Legal Health Record. If you have any questions, please contact the author of this message via ITS. Dr. Ismael Martinez The patient presented with the acute GI bleed, high lactic acid and KATEY. History/Risk Factors: impacted calculus in gallbladder neck, duodenal ulcer w bleeding Clinical Indicators: WBC: 17.0 to 23.6 Lactic acid: 2.6 Lactic AC Sepsis Rflx: Y Blood cultures: no growth Vitals signs on admission: T-97.3, P-84, R-7, BP-101/62 ID Consult: yes Antibiotics: IV Levaquin, IV Rocephin, IV Zosyn IV Bolus: yes Other: Developed metabolic encephalopathy In your professional opinion, please clarify if these findings signify one of the following conditions, whether the condition is POA, and cause, if known: Condition Sepsis ruled out SIRS, without underlying infectious process Sepsis due to (what infectious process?) Severe Sepsis Other, please specify Unable to determine Present on Admission Yes No MTDD
== END 2019-03-08 23:38 | disposition short-term general hospital (02) | DRG 377 ==
LOC: EC 21:13 → 3SCARD 03-06 02:13 → 2SICU 03-06 11:30 → OBSVTOIN 03-06 12:21 → 2SICU 03-06 13:42
PROVIDERS: ADMIT Family Medicine; ATTEND Family Medicine
PROC: 30233N1 Transfusion of Nonautologous Red Blood Cells into Peripheral Vein, Percutaneous Approach (ICD-10-PCS; 2019-03-06)
PROC: 0W3P8ZZ Control Bleeding in Gastrointestinal Tract, Via Natural or Artificial Opening Endoscopic (ICD-10-PCS; principal; 2019-03-07 13:00)
DX: K26.4 Chronic or unspecified duodenal ulcer with hemorrhage (principal); G93.41 Metabolic encephalopathy; D62 Acute posthemorrhagic anemia; N17.9 Acute kidney failure, unspecified; E87.2 Acidosis; J98.11 Atelectasis; D69.6 Thrombocytopenia, unspecified; K80.20 Calculus of gallbladder without cholecystitis without obstruction; E11.9 Type 2 diabetes mellitus without complications; K44.9 Diaphragmatic hernia without obstruction or gangrene; K29.60 Other gastritis without bleeding; R74.8 Abnormal levels of other serum enzymes; I10 Essential (primary) hypertension; M25.512 Pain in left shoulder; K29.50 Unspecified chronic gastritis without bleeding; M54.2 Cervicalgia; Z79.82 Long term (current) use of aspirin; Z79.1 Long term (current) use of non-steroidal anti-inflammatories (NSAID); Z79.899 Other long term (current) drug therapy; Z98.890 Other specified postprocedural states; Z87.81 Personal history of (healed) traumatic fracture; Z86.73 Personal history of transient ischemic attack (TIA), and cerebral infarction without residual deficits
CPT/HCPCS: 36415; 43239; 43270; 70450; 70496; 70498; 71045; 74177; 76705; 78278; 80048; 80053; 81003; 82140; 82150; 82272; 83605; 83690; 83735; 84100; 84145; 84484; 85025; 85027; 85610; 85652; 85730; 86850; 86900; 86901; 86920; 87040; 87086; 88305; 88342; 93005; 93306; 94640; 96361; 96374; 96375; 96376; 99285